=== PATIENT | male | born 1975 | race Caucasian/White ===

== ENCOUNTER 2019-10-16 12:09 | Inpatient (IN) | payer OTHER ==
--- NOTE | 2019-10-16 12:35 | BHS.RME ---
Substance Use & Tx History - Substance Use History Alcohol Substance amount: 1/5 vodka Frequency of use: More than 3 times per week Substance route: Oral Date of Last Use: 10/15/19 Heroin Substance amount: 1 bundle Frequency of use: Daily Substance route: Injection (ex: intravenous or skin popping) Date of Last Use: 10/16/19 Xanax Substance amount: 2mg 3 tabs Frequency of use: Daily Substance route: Oral Date of Last Use: 10/15/19 Nicotine Substance amount: 1/2 pack Frequency of use: Daily Substance route: Smoking Date of Last Use: 10/16/19 Physical/Psych/Mental Status - Behavior General Behavior: Increased activity (restlessness, agitation) Eye Contact: Normal - Thinking Thought Processes: Tight, Logical, Goal Directed - Physical Health Problems Is patient presently having any pain?: No Does patient presently have any injuries (include location): No Does patient currently have a fever: No Is patient : No COWS - Scale Resting Pulse: 0= [place] 80 or Below Sweatin=Flushed/Facial Moisture Restless Observation: 1= Difficult to Sit Still Pupil Size: 1= Pupils >than Normal Bone or Joint Aches: 2= Severe Diffuse Aches Runny Nose/ Eye Tearin= Runny Nose/Eyes GI Upset > 30mins: 2= Nausea/Diarrhea Tremor Observation: 4= Gross Tremor/Twitching Yawning Observation: 2= >3x During Session Anxiety or Irritability: 2=Irritable/Anxious Goose Flesh Skin: 3=Piloerection COWS Score: 21 CIWA Nausea/Vomitin Muscle Tremors: 3 Anxiety: 3 Agitation: 3 Paroxysmal Sweats: 3 Orientation: 0-Oriented Tacttile Disturbances: 0-None Auditory Disturbances: 0-None Visual Disturbances: 0-None Headache: 0-None Present CIWA-Ar Total Score: 15
--- NOTE | 2019-10-16 14:30 | HP ---
COWS - Scale Resting Pulse: 0= [place] 80 or Below Sweatin=Flushed/Facial Moisture Restless Observation: 1= Difficult to Sit Still Pupil Size: 1= Pupils >than Normal Bone or Joint Aches: 2= Severe Diffuse Aches Runny Nose/ Eye Tearin= Runny Nose/Eyes GI Upset > 30mins: 2= Nausea/Diarrhea Tremor Observation: 4= Gross Tremor/Twitching Yawning Observation: 2= >3x During Session Anxiety or Irritability: 2=Irritable/Anxious Goose Flesh Skin: 3=Piloerection COWS Score: 21 CIWA Score Nausea/Vomitin Muscle Tremors: 3 Anxiety: 3 Agitation: 3 Paroxysmal Sweats: 3 Orientation: 0-Oriented Tacttile Disturbances: 0-None Auditory Disturbances: 0-None Visual Disturbances: 0-None Headache: 0-None Present CIWA-Ar Total Score: 15 - Admission Criteria [facility]ASAS Guidelines: Admission for Medically Managed Detox: Requires at least one of the followin. CIWA greater than 12 2. Seizures within the past 24 hours 3. Delirium tremens within the past 24 hours 4. Hallucinations within the past 24 hours 5. Acute intervention needed for co occurring medical disorder 6. Acute intervention needed for co occurring psychiatric disorder 7. Severe withdrawal that cannot be handled at a lower level of care (continued vomiting, continued diarrhea, abnormal vital signs) requiring intravenous medication and/or fluids 8. Admitting History and Physical - Admission Chief Complaint: ": My life is out of control" History of Present Illness: 44 year old male with history of opioid dependence with withdrawals. sedative dependence, alcohol use disorder. He was in detox [facility] 90 days ago, completed and then relapsed immediately. Alcohol: 1/5 vodka 4x/wk, started in teen years, last used 10/15/19, blackout 1 year ago, endorses eye contact assembler daily Heroin: 1 bundle IV since age 30 and last used 10/16/19 at midnight. He has overdosed once 6 months ago, carries a narcan kit now. Benzo: Xanax 2 mg tabs - 3 tabs daily, started at age 36 and last used 10/15/19 Nicotine: 1/2 pack daily started smoking since 24 years old. PMH: Right Hip OA Psurg: None Psych: None Lives in the [place] alone. No legal problems. This patient was on suboxone with Dr. Humphrey who I spoke with on the phone who confirms that his suboxone was stolen and that he reported it to the police. He wishes to detox and not return to suboxone treatment. CIWA=15 COWS=21 Urine TOX: FEN, THC, AMP, CHRISTIN, MET Did use street methadone occasional marijuana He meets criteria as he is at high risk for relapse as he uses intravenously and has medical co-morbidity. History Source: Patient Limitations to Obtaining History: No Limitations - Past Medical History Musculoskeletal: Yes: Other (Osteoarthritis) - Past Surgical History Past Surgical History: Yes: None - Smoking History Smoking history: Current every day smoker Have you smoked in the past 12 months: Yes Aproximately how many cigarettes per day: 10 - Alcohol/Substance Use History of Substance Use: reports: Tranquilizers Date of Last Use: 10/16/19 - Social History Usual Living Arrangement: Yes: Alone Do you think of yourself as: Straight/Heterosexual ADL: Independent Occupation: unemployed History of Recent Travel: No Admission [facility] Exam Limitations: No Limitations - Ebola screening Have you traveled outside of the country in the last 21 days: No Have you had contact with anyone from an Ebola affected area: No Have you been sick,other than usual withdrawal symptoms: No Do you have a fever: No - Review of Systems Constitutional: Chills, Diaphoresis, Unintentional Wgt. Loss EENT: reports: No Symptoms Reported Respiratory: reports: No Symptoms reported Cardiac: reports: No Symptoms Reported GI: reports: No Symptoms Reported : reports: No Symptoms Reported Musculoskeletal: reports: No Symptoms Reported Integumentary: reports: No Symptoms Reported Neuro: reports: No Symptoms reported Endocrine: reports: No Symptoms Reported Hematology: reports: No Symptoms Reported Psychiatric: reports: Judgement Intact, Mood/Affect Appropiate, Orientated x3, Agitated, Anxious Other Systems: Reviewed and Negative Patient History - Patient Medical History Other Medical History: Osteoarthritis needs hip replacement - Patient Surgical History Past Surgical History: No - PPD History Previous Implant?: Yes Documented Results: Negative w/o proof Implanted On Prior [facility] Admission?: No PPD to be Administered?: Yes - Smoking Cessation Smoking history: Current every day smoker Have you smoked in the past 12 months: Yes Aproximately how many cigarettes per day: 10 Hx Chewing Tobacco Use: No Initiated information on smoking cessation: Yes 'Breaking Loose' booklet given: 10/16/19 - Substances abused Alcohol Substance route: Oral Frequency: 3-6 times per week Amount used: / vodka Age of first use: 17 Date of last use: 10/15/19 Heroin Substance route: Injection Frequency: Daily Amount used: 1 bundle Age of first use: 30 Date of last use: 10/16/19 Alprazolam (Xanax) Substance route: Oral Frequency: Daily Amount used: 2mg 3 tabs Age of first use: 36 Date of last use: 10/15/19 Admission Physical Exam [facility] Physical General Appearance: Yes: Mild Distress, Tremorous, Irritable, Sweating, Anxious HEENTM: Yes: EOMI, Hearing grossly Normal, Normal ENT Inspection, Normocephalic, Normal Voice, IVETTE, Pharynx Normal, Tm's normal Respiratory: Yes: Chest Non-Tender, Lungs Clear, Normal Breath Sounds, No Respi ratory Distress, No Accessory Muscle Use Neck: Yes: No masses,lesions,Nodules, Supple, Trachea in good position Breast: Yes: Within Normal Limits Cardiology: Yes: Regular Rhythm, Regular Rate, S1, S2 Abdominal: Yes: Normal Bowel Sounds, Non Tender, Flat, Soft Genitourinary: Yes: Within Normal Limits Back: Yes: Normal Inspection Musculoskeletal: Yes: full range of Motion, Gait Steady, Pelvis Stable Extremities: Yes: Normal Capillary Refill, Normal Inspection, Normal Range of Motion, Non-Tender Neurological: Yes: track supervisor II-XII NML intact, Fully Oriented, Alert, Motor Strength 5/5, Normal Mood/Affect, Normal Response Integumentary: Yes: Normal Color, Dry, Warm Lymphatic: Yes: Within Normal Limits Cleared for Admission [facility] - Detox or Rehab [facility] Level of Care: Medically Managed Detox Regimen/Protocol: Methadone/Valium Screened but not Admitted - Documentation of Visit Screened but not Admitted: No Breathalyzer - Breathalyzer Breathalyzer: 0 Inpatient Rehab Admission - Rehab Decision to Admit Inpatient rehab admission?: No
[2019-10-16] MEDS ORDERED: BISMUTH SUBSALICYLATE 262 MG/15 ML BTL PO PRN (14:39)
[2019-10-16] MEDS ORDERED: cloNIDine HCL 0.1 MG TABLET PO PRN (14:39)
[2019-10-16] MEDS ORDERED: IBUPROFEN 400 MG TABLET (FP) PO PRN (14:39)
[2019-10-16] MEDS ORDERED: MAGNESIUM CITRATE 300 ML BOTTLE PO PRN (14:39)
[2019-10-16] MEDS ORDERED: NICOTINE POLACRILEX 2 MG GUM BUC PRN (14:39)
[2019-10-16] MEDS ORDERED: ONDANSETRON *ODT* 4 MG TABLET SL ONE (14:39)
[2019-10-16] MEDS ORDERED: MAGNESIUM HYDROX 2400MG/30ML ORAL SUSPENSION 30 ML CUP PO PRN (14:39)
[2019-10-16] MEDS ORDERED: MAG HYDROX/AL HYDROX/SIMETH 30 ML UNIT-DOSE CUP PO PRN (14:39)
[2019-10-16] MEDS ORDERED: ACETAMINOPHEN 325 MG TABLET (FP) PO PRN ×2 (14:39)
[2019-10-16] MEDS ORDERED: diazePAM 5 MG TABLET PO PRN (14:39)
[2019-10-16] MEDS ORDERED: METHADONE HCL 10 MG TABLET (FOR DETOX USE ONLY) PO ONE (14:39)
[2019-10-16] MEDS ORDERED: MENTHOL/PHENOL 1 EACH UD MM PRN (14:39)
[2019-10-16] MEDS: diazePAM 5 MG TABLET PO SCH ×2 (15:43→22:16)
[2019-10-16] MEDS: PRENATAL VITAMINS W/ FOLIC ACID TABLET (FP) PO SCH (15:48)
[2019-10-16] MEDS: NICOTINE 7 MG/24 HOURS TOPICAL PATCH TD SCH (15:51)
[2019-10-16 15:58] VITALS: BMI 25.9
[2019-10-16] MEDS ORDERED: MASKS NR ONE (16:44)
[2019-10-16] MEDS: hydrOXYzine PAMOATE 25 MG CAPSULE (FP) PO SCH ×2 (17:33→22:19)
[2019-10-16] MEDS: THIAMINE HCL 100 MG TABLET (FP) PO SCH (22:16)
[2019-10-16] MEDS: MELATONIN 5 MG TABLETS PO SCH (22:17)
[2019-10-17] MEDS: diazePAM 5 MG TABLET PO SCH ×3 (05:54→21:47)
[2019-10-17] MEDS: hydrOXYzine PAMOATE 25 MG CAPSULE (FP) PO SCH ×2 (05:54→10:49)
[2019-10-17] MEDS ORDERED: METHADONE HCL 5 MG TABLET (FOR DETOX USE ONLY) ONE (09:22)
[2019-10-17] MEDS ORDERED: METHADONE HCL 10 MG TABLET (FOR DETOX USE ONLY) ONE (09:23)
[2019-10-17 10:00] LABS: HEMATOCRIT 42.6 % (35.4-49); HEMOGLOBIN 13.9 GM/dL (11.7-16.9); MCH 28.3 pg (25.7-33.7); MCHC 32.8 g/dl (32.0-35.9); MEAN CELL VOLUME 86.3 fl (80-96); MEAN PLT VOLUME 9.4 fl (7.5-11.1); PLATELET COUNT 175 K/MM3 (134-434); RBC 4.93 M/mm3 (4.00-5.60); RDW 15.2 % (11.9-15.9); WHITE BLOOD COUNT 4.7 K/mm3 (4.0-10.0)
[2019-10-17] MEDS ORDERED: METHADONE (DETOX) 20 MG, METHADONE (DETOX) 5 MG PO ONE (10:00)
[2019-10-17 10:17] LABS: ALBUMIN 3.3 g/dl (3.4-5.0); BILIRUBIN,TOTAL 0.6 mg/dL (0.2-1); BLOOD UREA NITROGEN 25.6 mg/dL (7-18); CALCIUM 8.8 mg/dL (8.5-10.1); CREATININE 0.9 mg/dL (0.55-1.3); TOT PROT 6.4 g/dl (6.4-8.2)
[2019-10-17] MEDS ORDERED: hydrOXYzine PAMOATE 25 MG CAPSULE (FP) PO PRN (10:40)
[2019-10-17] MEDS: NICOTINE 7 MG/24 HOURS TOPICAL PATCH TD SCH (10:46)
--- NOTE | 2019-10-17 10:47 | PN ---
[facility] CIWA - CIWA Score Nausea/Vomitin-No Nausea/No Vomiting Muscle Tremors: 3 Anxiety: 3 Agitation: 3 Paroxysmal Sweats: 2 Orientation: 0-Oriented Tacttile Disturbances: 0-None Auditory Disturbances: 0-None Visual Disturbances: 0-None Headache: 0-None Present CIWA-Ar Total Score: 11 S COWS - Scale Resting Pulse: 0= [place] 80 or Below Sweatin= Chills/Flushing Restless Observation: 1= Difficult to Sit Still Pupil Size: 0= Normal to Room Light Bone or Joint Aches: 1= Mild Discomfort Runny Nose/ Eye Tearin= Runny Nose/Eyes GI Upset > 30mins: 0= None Tremor Observation of Outstretched Hands: 1= Tremor [place], Not Seen Yawning Observation: 1= 1-2x During Session Anxiety or Irritability: 2=Irritable/Anxious Goose Flesh Skin: 0=Smooth Skin COWS Score: 9 [facility] Progress Note (SOAP) Subjective: sweats shakes body aches interrupted sleep chronic pain leg cramps Objective: 10/17/19 10:46 Vital Signs Temperature 97.8 F 10/17/19 09:12 Pulse Rate 55 L 10/17/19 09:12 Respiratory Rate 18 10/17/19 09:12 Blood Pressure 126/78 10/17/19 09:12 O2 Sat by Pulse Oximetry (%) 98 10/17/19 06:33 Laboratory Tests 10/17/19 10/17/19 07:10 07:10 WBC 4.7 RBC 4.93 Hgb 13.9 Hct 42.6 MCV 86.3 MCH 28.3 MCHC 32.8 RDW 15.2 Plt Count 175 MPV 9.4 Sodium 141 Potassium 4.0 Chloride 107 Carbon Dioxide 29 Anion Gap 5 L BUN 25.6 H Creatinine 0.9 Est GFR (CKD-EPI)AfAm 119.13 Est GFR (CKD-EPI)NonAf 102.79 Random Glucose 111 H Calcium 8.8 Total Bilirubin 0.6 AST 43 H ALT 71 H Alkaline Phosphatase 69 Total Protein 6.4 Albumin 3.3 L labs noted elevated BUN; encouraged fluids aaox3 ambulating no acute distress Assessment: 10/17/19 10:47 withdrawal sx Plan: continue detox increase fluids motrin 800mg tid prm roboxin prn
[2019-10-17] MEDS ORDERED: IBUPROFEN 400 MG TABLET (FP) PO PRN (10:48)
[2019-10-17] MEDS: PRENATAL VITAMINS W/ FOLIC ACID TABLET (FP) PO SCH (10:54)
--- NOTE | 2019-10-17 13:18 | EKG ---
Test Reason : Blood Pressure : / mmHG Vent. Rate : 059 BPM Atrial Rate : 059 BPM P-R Int : 154 ms QRS Dur : 100 ms QT Int : 432 ms P-R-T Axes : 045 008 031 degrees QTc Int : 427 ms SINUS BRADYCARDIA WITH SINUS ARRHYTHMIA NONSPECIFIC INTRAVENTRICULAR CONDUCTION DEFECT NO PREVIOUS ECGS AVAILABLE Confirmed by JAVIER BURKETT MD ([id number]) on 10/17/2019 1:17:20 PM Referred By: Confirmed By:JAVIER BURKETT MD
[2019-10-17] MEDS: METHOCARBAMOL 500 MG TABLET PO PRN (14:29)
[2019-10-17] MEDS: THIAMINE HCL 100 MG TABLET (FP) PO SCH (21:47)
[2019-10-17] MEDS: MELATONIN 5 MG TABLETS PO SCH (21:55)
[2019-10-18] MEDS: diazePAM 5 MG TABLET PO SCH ×2 (06:51→17:46)
[2019-10-18] MEDS ORDERED: METHADONE HCL 10 MG TABLET (FOR DETOX USE ONLY) PO ONE (10:00)
[2019-10-18] MEDS: PRENATAL VITAMINS W/ FOLIC ACID TABLET (FP) PO SCH (10:38)
[2019-10-18] MEDS: NICOTINE 7 MG/24 HOURS TOPICAL PATCH TD SCH (10:39)
[2019-10-18] MEDS: METHOCARBAMOL 500 MG TABLET PO PRN (13:06)
--- NOTE | 2019-10-18 18:08 | PN ---
S CIWA - CIWA Score Nausea/Vomitin-No Nausea/No Vomiting Muscle Tremors: None Anxiety: 1-Mildly Anxious Agitation: 1-Slight > Activity Paroxysmal Sweats: 2 Orientation: 0-Oriented Tacttile Disturbances: 2-Mild Itch/Numbness/Burn Auditory Disturbances: 0-None Visual Disturbances: 2-Mild Sensitivity Headache: 0-None Present CIWA-Ar Total Score: 8 [facility] COWS - Scale Resting Pulse: 0= [place] 80 or Below Sweatin= Chills/Flushing Restless Observation: 1= Difficult to Sit Still Pupil Size: 0= Normal to Room Light Bone or Joint Aches: 4=Acute Joint/Muscle Pain Runny Nose/ Eye Tearin= None GI Upset > 30mins: 0= None Tremor Observation of Outstretched Hands: 0= None Yawning Observation: 1= 1-2x During Session Anxiety or Irritability: 2=Irritable/Anxious Goose Flesh Skin: 0=Smooth Skin COWS Score: 9 S Progress Note (SOAP) Subjective: Sweating, Body Aches, Interrupted Sleep. Objective: Patient A & O X 3, Observed Ambulating on Detox Unit Unassisted. In No Acute Distress. 10/18/19 18:07 Vital Signs Temperature 98.4 F 10/18/19 17:15 Pulse Rate 54 L 10/18/19 17:15 Respiratory Rate 18 10/18/19 17:15 Blood Pressure 113/73 10/18/19 17:15 O2 Sat by Pulse Oximetry (%) 99 10/18/19 12:48 Laboratory Tests 10/17/19 10/17/19 10/17/19 07:10 07:10 07:10 WBC 4.7 RBC 4.93 Hgb 13.9 Hct 42.6 MCV 86.3 MCH 28.3 MCHC 32.8 RDW 15.2 Plt Count 175 MPV 9.4 Sodium 141 Potassium 4.0 Chloride 107 Carbon Dioxide 29 Anion Gap 5 L BUN 25.6 H Creatinine 0.9 Est GFR (CKD-EPI)AfAm 119.13 Est GFR (CKD-EPI)NonAf 102.79 Random Glucose 111 H Calcium 8.8 Total Bilirubin 0.6 AST 43 H ALT 71 H Alkaline Phosphatase 69 Total Protein 6.4 Albumin 3.3 L Syphilis Serology Non-reactive Lab Results Noted. Assessment: 10/18/19 18:07 WITHDRAWAL SYMPTOMS. Plan: Continue Detox.
[2019-10-18] MEDS: LIDOCAINE 5% TOPICAL PATCH TP SCH (18:28)
[2019-10-18] MEDS: LIDOCAINE PATCH REMOVAL MC SCH (23:00)
[2019-10-18] MEDS: THIAMINE HCL 100 MG TABLET (FP) PO SCH (23:00)
[2019-10-18] MEDS: MELATONIN 5 MG TABLETS PO SCH (23:00)
[2019-10-19] MEDS ORDERED: diazePAM 5 MG TABLET PO ONE (06:00)
[2019-10-19] MEDS ORDERED: METHADONE HCL 5 MG TABLET (FOR DETOX USE ONLY) ONE (09:35)
[2019-10-19] MEDS ORDERED: METHADONE HCL 10 MG TABLET (FOR DETOX USE ONLY) ONE (09:35)
[2019-10-19] MEDS ORDERED: METHADONE (DETOX) 10 MG, METHADONE (DETOX) 5 MG PO ONE (10:00)
[2019-10-19] MEDS: PRENATAL VITAMINS W/ FOLIC ACID TABLET (FP) PO SCH (10:55)
[2019-10-19] MEDS: LIDOCAINE 5% TOPICAL PATCH TP SCH (10:56)
[2019-10-19] MEDS: METHOCARBAMOL 500 MG TABLET PO PRN (10:57)
[2019-10-19] MEDS: NICOTINE 7 MG/24 HOURS TOPICAL PATCH TD SCH (10:57)
[2019-10-19] MEDS ORDERED: cloNIDine HCL 0.1 MG TABLET PO PRN (15:37)
--- NOTE | 2019-10-19 15:39 | PN ---
S CIWA - CIWA Score Nausea/Vomitin-No Nausea/No Vomiting Muscle Tremors: 2 Anxiety: 2 Agitation: 1-Slight > Activity Paroxysmal Sweats: 2 Orientation: 0-Oriented Tacttile Disturbances: 0-None Auditory Disturbances: 0-None Visual Disturbances: 0-None Headache: 0-None Present CIWA-Ar Total Score: 7 [facility] COWS - Scale Resting Pulse: 0= [place] 80 or Below Sweatin= Chills/Flushing Restless Observation: 0= Sits Still Pupil Size: 0= Normal to Room Light Bone or Joint Aches: 1= Mild Discomfort Runny Nose/ Eye Tearin= Runny Nose/Eyes GI Upset > 30mins: 1= Stomach Cramp Tremor Observation of Outstretched Hands: 2= Slight Tremor Visible Yawning Observation: 0= None Anxiety or Irritability: 1=Feels Anxious/Irritable Goose Flesh Skin: 0=Smooth Skin COWS Score: 8 [facility] Progress Note (SOAP) Subjective: Stomachache, diarrhea. Uses crutches stating he needs right hip replacement. Patient is wearing face mask. Objective: 10/19/19 15:35 Last Vital Signs Temp Pulse Resp BP Pulse Ox 97.3 F L 56 L 19 143/78 100 10/19/19 12:56 10/19/19 12:56 10/19/19 12:56 10/19/19 12:56 10/19/19 12:56 Elevated b/p noted Laboratory Tests 10/16/19 10/17/19 10/17/19 Unknown 07:10 07:10 WBC 4.7 RBC 4.93 Hgb 13.9 Hct 42.6 MCV 86.3 MCH 28.3 MCHC 32.8 RDW 15.2 Plt Count 175 MPV 9.4 Sodium 141 Potassium 4.0 Chloride 107 Carbon Dioxide 29 Anion Gap 5 L BUN 25.6 H Creatinine 0.9 Est GFR (CKD-EPI)AfAm 119.13 Est GFR (CKD-EPI)NonAf 102.79 Random Glucose 111 H Calcium 8.8 Total Bilirubin 0.6 AST 43 H ALT 71 H Alkaline Phosphatase 69 Total Protein 6.4 Albumin 3.3 L Syphilis Serology COVID-19 (FELA) Not detected 10/17/19 07:10 WBC RBC Hgb Hct MCV MCH MCHC RDW Plt Count MPV Sodium Potassium Chloride Carbon Dioxide Anion Gap BUN Creatinine Est GFR (CKD-EPI)AfAm Est GFR (CKD-EPI)NonAf Random Glucose Calcium Total Bilirubin AST ALT Alkaline Phosphatase Total Protein Albumin Syphilis Serology Non-reactive COVID-19 (FELA) Labs reviewed: mild transaminitis and azotemia Assessment: 10/19/19 15:39 Withdrawal sxs Noted with elevated b/p, transaminitis and azotemia Plan: Continue detox Elevated b/p: could be r/t withdrawal, monitor b/p, start clonidine 0.1mg PO q8hr (hold for b/p <110/60) Transaminitis: most likely due to alcoholism, repeat AST/ALT Azotemia: encouraged PO water hydration
[2019-10-19] MEDS: THIAMINE HCL 100 MG TABLET (FP) PO SCH (22:00)
[2019-10-19] MEDS: MELATONIN 5 MG TABLETS PO SCH (22:00)
[2019-10-19] MEDS: LIDOCAINE PATCH REMOVAL MC SCH (22:04)
--- NOTE | 2019-10-20 09:54 | PN ---
[facility] CIWA - CIWA Score Nausea/Vomitin-No Nausea/No Vomiting Muscle Tremors: 2 Anxiety: 1-Mildly Anxious Agitation: 1-Slight > Activity Paroxysmal Sweats: No Perspiration Orientation: 0-Oriented Tacttile Disturbances: 0-None Auditory Disturbances: 0-None Visual Disturbances: 0-None Headache: 0-None Present CIWA-Ar Total Score: 4 S COWS - Scale Resting Pulse: 0= [place] 80 or Below Sweatin= No chills or Flushing Restless Observation: 1= Difficult to Sit Still Pupil Size: 0= Normal to Room Light Bone or Joint Aches: 1= Mild Discomfort Runny Nose/ Eye Tearin= None GI Upset > 30mins: 0= None Tremor Observation of Outstretched Hands: 0= None Yawning Observation: 0= None Anxiety or Irritability: 1=Feels Anxious/Irritable Goose Flesh Skin: 0=Smooth Skin COWS Score: 3 S Progress Note (SOAP) Subjective: feeling better little anxiety Objective: 10/20/19 09:53 Vital Signs Temperature 98.5 F 10/20/19 08:45 Pulse Rate 56 L 10/20/19 08:45 Respiratory Rate 17 10/20/19 08:45 Blood Pressure 125/69 10/20/19 08:45 O2 Sat by Pulse Oximetry (%) 96 10/20/19 06:05 aaox3 ambulating with crutches safely no acute distress Assessment: 10/20/19 09:53 mild withdrawals Plan: complete detox d/c in am
[2019-10-20] MEDS ORDERED: METHADONE HCL 10 MG TABLET (FOR DETOX USE ONLY) PO ONE (10:00)
[2019-10-20] MEDS: PRENATAL VITAMINS W/ FOLIC ACID TABLET (FP) PO SCH (10:52)
[2019-10-20] MEDS: LIDOCAINE 5% TOPICAL PATCH TP SCH (10:52)
[2019-10-20] MEDS: NICOTINE 7 MG/24 HOURS TOPICAL PATCH TD SCH (10:53)
[2019-10-20] MEDS: METHOCARBAMOL 500 MG TABLET PO PRN (10:55)
--- NOTE | 2019-10-20 13:30 | PN ---
[facility] Progress Note (SOAP) Subjective: I am ready for rehab today Objective: 10/20/19 13:29 Vital Signs Temperature 98.5 F 10/20/19 08:45 Pulse Rate 56 L 10/20/19 08:45 Respiratory Rate 17 10/20/19 08:45 Blood Pressure 125/69 10/20/19 08:45 O2 Sat by Pulse Oximetry (%) 96 10/20/19 06:05 aaox3 ambulating no acute distress Assessment: 10/20/19 13:29 no s/s of withdrawals noted Plan: d/c today to rehab available for today
--- NOTE | 2019-10-20 13:32 | DS ---
[facility] Detox Discharge Summary Admission Date: 10/16/19 Discharge Date: 10/20/19 - History Present History: Opioid Dependence - Physical Exam Results Vital Signs: Vital Signs Temperature 98.5 F 10/20/19 08:45 Pulse Rate 56 L 10/20/19 08:45 Respiratory Rate 17 10/20/19 08:45 Blood Pressure 125/69 10/20/19 08:45 O2 Sat by Pulse Oximetry (%) 96 10/20/19 06:05 Laboratory Tests 10/16/19 10/17/19 10/17/19 Unknown 07:10 07:10 WBC 4.7 RBC 4.93 Hgb 13.9 Hct 42.6 MCV 86.3 MCH 28.3 MCHC 32.8 RDW 15.2 Plt Count 175 MPV 9.4 Sodium 141 Potassium 4.0 Chloride 107 Carbon Dioxide 29 Anion Gap 5 L BUN 25.6 H Creatinine 0.9 Est GFR (CKD-EPI)AfAm 119.13 Est GFR (CKD-EPI)NonAf 102.79 Random Glucose 111 H Calcium 8.8 Total Bilirubin 0.6 AST 43 H ALT 71 H Alkaline Phosphatase 69 Total Protein 6.4 Albumin 3.3 L Syphilis Serology COVID-19 (FELA) Not detected 10/17/19 07:10 WBC RBC Hgb Hct MCV MCH MCHC RDW Plt Count MPV Sodium Potassium Chloride Carbon Dioxide Anion Gap BUN Creatinine Est GFR (CKD-EPI)AfAm Est GFR (CKD-EPI)NonAf Random Glucose Calcium Total Bilirubin AST ALT Alkaline Phosphatase Total Protein Albumin Syphilis Serology Non-reactive COVID-19 (FELA) Pertinent Admission Physical Exam Findings: Vital Signs Temperature 98.5 F 10/20/19 08:45 Pulse Rate 56 L 10/20/19 08:45 Respiratory Rate 17 10/20/19 08:45 Blood Pressure 125/69 10/20/19 08:45 O2 Sat by Pulse Oximetry (%) 96 10/20/19 06:05 Laboratory Tests 10/16/19 10/17/19 10/17/19 Unknown 07:10 07:10 WBC 4.7 RBC 4.93 Hgb 13.9 Hct 42.6 MCV 86.3 MCH 28.3 MCHC 32.8 RDW 15.2 Plt Count 175 MPV 9.4 Sodium 141 Potassium 4.0 Chloride 107 Carbon Dioxide 29 Anion Gap 5 L BUN 25.6 H Creatinine 0.9 Est GFR (CKD-EPI)AfAm 119.13 Est GFR (CKD-EPI)NonAf 102.79 Random Glucose 111 H Calcium 8.8 Total Bilirubin 0.6 AST 43 H ALT 71 H Alkaline Phosphatase 69 Total Protein 6.4 Albumin 3.3 L Syphilis Serology COVID-19 (FELA) Not detected 10/17/19 07:10 WBC RBC Hgb Hct MCV MCH MCHC RDW Plt Count MPV Sodium Potassium Chloride Carbon Dioxide Anion Gap BUN Creatinine Est GFR (CKD-EPI)AfAm Est GFR (CKD-EPI)NonAf Random Glucose Calcium Total Bilirubin AST ALT Alkaline Phosphatase Total Protein Albumin Syphilis Serology Non-reactive COVID-19 (FELA) aaox3 ambulating with crutches safely no acute distress lungs assessed CTA - Treatment Hospital Course: Detox Protocol Followed, Detoxed Safely, Responded well, Discharged Condition Good, Rehab Referral Accepted Patient has Accepted a Rehab Referral to: referred in [facility] inpatient rehab - Diagnosis (1) Osteoarthritis of right hip Current Visit: Yes Status: Chronic Qualifiers: Osteoarthritis type: other secondary Qualified Code(s): M16.7 - Other unilateral secondary osteoarthritis of hip (2) Sedative, hypnotic or anxiolytic dependence with withdrawal, uncomplicated Current Visit: Yes Status: Chronic (3) Nicotine dependence Current Visit: Yes Status: Chronic Qualifiers: Nicotine product type: cigarettes Substance use status: uncomplicated Qualified Code(s): F17.210 - Nicotine dependence, cigarettes, uncomplicated (4) Opioid dependence with withdrawal Current Visit: Yes Status: Chronic (5) Alcohol dependence with withdrawal, uncomplicated Current Visit: Yes Status: Chronic - AMA Did Patient Leave Against Medical Advice: No
[2019-10-20 13:33] VITALS: BP 111/69; PULSE 57; TEMP 97.6
[2019-10-21] MEDS ORDERED: METHADONE HCL 5 MG TABLET (FOR DETOX USE ONLY) PO ONE (06:00)
== END 2019-10-20 15:35 | disposition other institution (70) | DRG 773 ==
LOC: YASAS 12:09 → Y6N 14:45
PROVIDERS: ADMIT Allergy & Immunology; ATTEND Allergy & Immunology
PROC: HZ2ZZZZ Detoxification Services for Substance Abuse Treatment (ICD-10-PCS; principal; 2019-10-16)
DX: F11.23 Opioid dependence with withdrawal (principal); F10.230 Alcohol dependence with withdrawal, uncomplicated; F13.230 Sedative, hypnotic or anxiolytic dependence with withdrawal, uncomplicated; F17.210 Nicotine dependence, cigarettes, uncomplicated; M16.7 Other unilateral secondary osteoarthritis of hip; R03.0 Elevated blood-pressure reading, without diagnosis of hypertension; R79.89 Other specified abnormal findings of blood chemistry; R74.0 Nonspecific elevation of levels of transaminase and lactic acid dehydrogenase [LDH]
CPT/HCPCS: 36415; 80053; 85027; 86780; 93005; 93010; U0003

== ENCOUNTER 2019-10-20 14:39 | Inpatient (IN) | payer OTHER ==
[2019-10-20] MEDS ORDERED: MAGNESIUM HYDROX 2400MG/30ML ORAL SUSPENSION 30 ML CUP PO PRN (14:53)
[2019-10-20] MEDS ORDERED: ACETAMINOPHEN 325 MG TABLET (FP) PO PRN (14:53)
[2019-10-20] MEDS ORDERED: P-EPHED 60MG/TRIPROLIDI 2.5MG TABLET PO PRN (14:53)
[2019-10-20] MEDS ORDERED: LOPERAMIDE HCL 2 MG CAPSULE PO PRN (14:53)
[2019-10-20] MEDS ORDERED: MENTHOL/PHENOL 1 EACH UD MM PRN (14:53)
[2019-10-20] MEDS ORDERED: MAG HYDROX/AL HYDROX/SIMETH 30 ML UNIT-DOSE CUP PO PRN (14:53)
[2019-10-20] MEDS ORDERED: MAGNESIUM CITRATE 300 ML BOTTLE PO PRN (14:53)
[2019-10-20] MEDS ORDERED: guaiFENesin 200 MG/10 ML 10 ML UNIT-DOSE CUPS PO PRN (14:53)
[2019-10-20] MEDS ORDERED: NICOTINE POLACRILEX 2 MG GUM BUC PRN (14:53)
--- NOTE | 2019-10-20 14:53 | HP ---
[facility] Rehab Assess/Revision - Admission History Admitted to Rehab from: [facility] Date of Admission to Rehab: 10/19/29 - Findings Detox History & Physical reviewed: Yes Concur with findings: Yes Comments/Additional Findings: for rehab as protocol Inpatient Rehab Admission - Rehab Decision to Admit Inpatient rehab admission?: Yes - Initial Determination Are CD services needed?: Yes Free of communicable disease: Yes Not in need of hospitalization: Yes - Rehab Admission Criteria Previous failed treatment: Yes Poor recovery environment: Yes Comorbidities: Yes Lacks judgement: No Patient is meeting Inpatient Rehab admission criteria:: Yes
[2019-10-20] MEDS: THIAMINE HCL 100 MG TABLET (FP) PO SCH (21:33)
[2019-10-20] MEDS: MELATONIN 5 MG TABLETS PO SCH (21:33)
[2019-10-20] MEDS: hydrOXYzine PAMOATE 25 MG CAPSULE (FP) PO SCH (21:34)
[2019-10-20] MEDS: cloNIDine HCL 0.1 MG TABLET PO SCH (21:35)
[2019-10-21] MEDS: hydrOXYzine PAMOATE 25 MG CAPSULE (FP) PO SCH ×2 (06:55→09:17)
[2019-10-21] MEDS: PRENATAL VITAMINS W/ FOLIC ACID TABLET (FP) PO SCH (09:17)
[2019-10-21] MEDS: cloNIDine HCL 0.1 MG TABLET PO SCH ×2 (09:17→21:28)
[2019-10-21] MEDS: METHOCARBAMOL 500 MG TABLET PO PRN ×3 (09:19→21:28)
[2019-10-21] MEDS ORDERED: NICOTINE 7 MG/24 HOURS TOPICAL PATCH TD SCH (10:00)
[2019-10-21] MEDS: NICOTINE 21 MG/24 HOURS TOPICAL PATCH TD SCH (11:30)
[2019-10-21] MEDS: hydrOXYzine PAMOATE 25 MG CAPSULE (FP) PO PRN (17:32)
[2019-10-21] MEDS: THIAMINE HCL 100 MG TABLET (FP) PO SCH (21:27)
[2019-10-21] MEDS: MELATONIN 5 MG TABLETS PO SCH (21:27)
[2019-10-22] MEDS: cloNIDine HCL 0.1 MG TABLET PO SCH ×2 (09:08→21:06)
[2019-10-22] MEDS: NICOTINE 21 MG/24 HOURS TOPICAL PATCH TD SCH (09:08)
[2019-10-22] MEDS: PRENATAL VITAMINS W/ FOLIC ACID TABLET (FP) PO SCH (09:08)
--- NOTE | 2019-10-22 14:27 | PN ---
[facility]HS COWS - Scale Resting Pulse: 0= ME 80 or Below Sweatin= Chills/Flushing Restless Observation: 0= Sits Still Pupil Size: 1= Pupils >than Normal Bone or Joint Aches: 2= Severe Diffuse Aches Runny Nose/ Eye Tearin= Runny Nose/Eyes GI Upset > 30mins: 1= Stomach Cramp Tremor Observation of Outstretched Hands: 1= Tremor [place], Not Seen Yawning Observation: 0= None Anxiety or Irritability: 1=Feels Anxious/Irritable Goose Flesh Skin: 0=Smooth Skin COWS Score: 9 BHS Progress Note (SOAP) Subjective: Patient requesting to re-start suboxone. Upon admission, he thought that he would stop using the suboxone, but after detox, he began to experience withdrawal symptoms. Yesterday he was unusually irritable; and today he is experience full body aches, abd discomfort, and cravings. 44 year old male with history of opioid dependence with withdrawals. sedative dependence, alcohol use disorder. He was in detox [facility] 90 days ago, completed and then relapsed immediately. Alcohol: 1/5 vodka 4x/wk, started in teen years, last used 10/15/19, blackout 1 year ago, endorses eye data examination clerk daily Heroin: 1 bundle IV since age 30 and last used 10/16/19 at midnight. He has overdosed once 6 months ago, carries a narcan kit now. Benzo: Xanax 2 mg tabs - 3 tabs daily, started at age 36 and last used 10/15/19 Nicotine: 1/2 pack daily started smoking since 24 years old. PMH: Right Hip OA Psurg: None Psych: None Lives in the [place] alone. No legal problems. This patient was on suboxone with Dr. Humphrey. Dr. Starks, emergency medicine medical director spoke with Dr. Humphrey on the phone who confirms that his suboxone was stolen and that he reported it to the police. Patient Name: Raymond DomingoBirth Date: 1975 Address: [address] [place] [id number]: Male Rx Written Rx Dispensed Drug Quantity Days Supply Prescriber Name Payment Method Dispenser 09/30/2019 09/30/2019 suboxone 8 mg-2 mg sl film 90 30 Bola Humphrey MD Medicaid [facility] 09/02/2019 09/02/2019 suboxone 8 mg-2 mg sl film 90 30 Bola Humphrey MD Medicaid [facility] Patient Name: Raymond DomingoBirth Date: 1975 Address: [place], [place] [address]Zsk: Male Rx Written Rx Dispensed Drug Quantity Days Supply Prescriber Name Payment Method Dispenser 09/12/2019 09/15/2019 chlordiazepoxide 25 mg capsule 11 2 Sanchez Arizmendi (MATTIE) Medicaid [facility] 08/15/2019 08/15/2019 lorazepam 2 mg tablet 8 2 Sanchez Phipps (MATTIE) Medicaid [facility] 06/10/2019 06/11/2019 chlordiazepoxide 25 mg capsule 8 2 Candi Morejonand Medicaid [facility] 05/07/2019 05/08/2019 chlordiazepoxide 25 mg capsule 8 2 Daniel Morejon Medicaid [facility] 12/31/2018 12/31/2018 testosterone cyp 200 mg/ml 4ml 28 Tyrone Abreu MD Medicaid [facility] 10/31/2018 11/05/2018 testosterone cyp 200 mg/ml 4ml 28 Tyrone Abreu MD Medicaid [facility] Patient Name: Raymond DomingoBirth Date: 1975 Address: [address] [place] [id number]: Male Rx Written Rx Dispensed Drug Quantity Days Supply Prescriber Name Payment Method Dispenser 09/03/2019 09/03/2019 lorazepam 1 mg tablet 27 7 Nicole Martinez NP [facility] Patient Name: Raymond DomingoBirth Date: 1975 Address: [address] [place], [place] [address]Mig: Male Rx Written Rx Dispensed Drug Quantity Days Supply Prescriber Name Payment Method Dispenser 03/03/2019 03/04/2019 suboxone 12 mg-3 mg sl film 14 14 Julio Garcia MD Medicaid [id number] Objective: P/E; General: appears anxious HEENTM: normocephalic, Pupils > 1cm, reactive Neck: supple Resp:no use of accessory muscles MSK: ambulates with crutches Neuro: Cn 2-12 intact. 10/22/19 14:42 Assessment: Wiethdrawal from opiates 10/22/19 14:43 Plan: Patient's usual dose is 8 mg TID. Will give one dose of 8 today, and increase tomorrow.
[2019-10-22] MEDS ORDERED: BUPRENORPHINE/NALOXONE 8 MG/2 MG FILM PACKET SL ONE (14:45)
[2019-10-22] MEDS: THIAMINE HCL 100 MG TABLET (FP) PO SCH (21:05)
[2019-10-22] MEDS: MELATONIN 5 MG TABLETS PO SCH (21:05)
[2019-10-22] MEDS: METHOCARBAMOL 500 MG TABLET PO PRN (21:06)
[2019-10-23] MEDS: cloNIDine HCL 0.1 MG TABLET PO SCH ×2 (10:03→21:10)
[2019-10-23] MEDS: BUPRENORPHINE/NALOXONE 8 MG/2 MG FILM PACKET SL SCH (10:03)
[2019-10-23] MEDS: NICOTINE 21 MG/24 HOURS TOPICAL PATCH TD SCH (10:03)
[2019-10-23] MEDS: PRENATAL VITAMINS W/ FOLIC ACID TABLET (FP) PO SCH (10:04)
[2019-10-23] MEDS: hydrOXYzine PAMOATE 25 MG CAPSULE (FP) PO PRN ×2 (15:26→21:10)
[2019-10-23] MEDS: IBUPROFEN 400 MG TABLET (FP) PO PRN (15:26)
[2019-10-23] MEDS: METHOCARBAMOL 500 MG TABLET PO PRN (15:26)
--- NOTE | 2019-10-23 15:53 | PN ---
[facility] Progress Note Note: Patient states he needs pain medications Declofenac and gabapentin that he takes at home. However, these medications are not in his at home list. He states that he has them in his personal belongings. Patient needs to be escorted downstairs to retrieve medications and have them verified by pharmacy before they can be dispensed.
[2019-10-23] MEDS: THIAMINE HCL 100 MG TABLET (FP) PO SCH (21:09)
[2019-10-23] MEDS: MELATONIN 5 MG TABLETS PO SCH (21:12)
[2019-10-24] MEDS: cloNIDine HCL 0.1 MG TABLET PO SCH ×3 (09:16→21:11)
[2019-10-24] MEDS: PRENATAL VITAMINS W/ FOLIC ACID TABLET (FP) PO SCH (09:17)
[2019-10-24] MEDS: BUPRENORPHINE/NALOXONE 8 MG/2 MG FILM PACKET SL SCH ×3 (09:17→21:56)
[2019-10-24] MEDS: NICOTINE 21 MG/24 HOURS TOPICAL PATCH TD SCH (09:17)
--- NOTE | 2019-10-24 09:47 | PN ---
[facility] Progress Note Note: Vital Signs Temperature 97.5 F L 10/24/19 06:25 Pulse Rate 68 10/24/19 09:05 Respiratory Rate 18 10/24/19 09:05 Blood Pressure 127/68 10/24/19 09:05 O2 Sat by Pulse Oximetry (%) 98 10/24/19 06:25 Patient is a 44 yo male with long standing history of opioid dependence on MAT BUP at this time and currently receiving dose of 8mg QD. Patient is stable, in no apparent distress, ambulatory, but anxious. Reports taking higher dose at home and requesting increase in those. HEALTH INFORMATION CODER reviewed and was on routine dose of 8mg TID. Will increase to 8 mg SL BID and continue to monitor. Patient to follow up with aftercare upon completing rehab treatment, continue to monitor and assess for dose adjustment as needed. Patient Name: Raymond DomingoBirth Date: 1975 Address: [address] [place] [id number]: Male Rx Written Rx Dispensed Drug Quantity Days Supply Prescriber Name Payment Method Dispenser 09/30/2019 09/30/2019 suboxone 8 mg-2 mg sl film 90 30 Bola Humphrey MD Medicaid [address] [facility] 09/02/2019 09/02/2019 suboxone 8 mg-2 mg sl film 90 30 Bola Humphrey MD Medicaid [address] [facility] Patient Name: Raymond DomingoBirth Date: 1975 Address: [place], [place] [address]Wam: Male Rx Written Rx Dispensed Drug Quantity Days Supply Prescriber Name Payment Method Dispenser 09/12/2019 09/15/2019 chlordiazepoxide 25 mg capsule 11 2 Sanchez Arizmendi (MATTIE) Medicaid [facility] 08/15/2019 08/15/2019 lorazepam 2 mg tablet 8 2 Sanchez Phipps (MATTIE) Medicaid [facility], [facility]
[2019-10-24] MEDS ORDERED: BUPRENORPHINE/NALOXONE 8 MG/2 MG FILM PACKET SL SCH (10:00)
[2019-10-24] MEDS: THIAMINE HCL 100 MG TABLET (FP) PO SCH (21:12)
[2019-10-24] MEDS: MELATONIN 5 MG TABLETS PO SCH (21:12)
[2019-10-25] MEDS: NICOTINE 21 MG/24 HOURS TOPICAL PATCH TD SCH (09:30)
[2019-10-25] MEDS: BUPRENORPHINE/NALOXONE 8 MG/2 MG FILM PACKET SL SCH ×2 (09:30→21:32)
[2019-10-25] MEDS: PRENATAL VITAMINS W/ FOLIC ACID TABLET (FP) PO SCH (09:30)
[2019-10-25] MEDS: IBUPROFEN 400 MG TABLET (FP) PO PRN (09:58)
[2019-10-25] MEDS: THIAMINE HCL 100 MG TABLET (FP) PO SCH (21:32)
[2019-10-25] MEDS: hydrOXYzine PAMOATE 25 MG CAPSULE (FP) PO PRN (21:32)
[2019-10-25] MEDS: MELATONIN 5 MG TABLETS PO SCH (21:33)
[2019-10-26] MEDS: IBUPROFEN 400 MG TABLET (FP) PO PRN (10:21)
[2019-10-26] MEDS: NICOTINE 21 MG/24 HOURS TOPICAL PATCH TD SCH (10:21)
[2019-10-26] MEDS: PRENATAL VITAMINS W/ FOLIC ACID TABLET (FP) PO SCH (10:21)
[2019-10-26] MEDS: BUPRENORPHINE/NALOXONE 8 MG/2 MG FILM PACKET SL SCH ×2 (10:21→21:05)
[2019-10-26] MEDS: THIAMINE HCL 100 MG TABLET (FP) PO SCH (21:05)
[2019-10-26] MEDS: MELATONIN 5 MG TABLETS PO SCH (21:05)
[2019-10-27] MEDS: IBUPROFEN 400 MG TABLET (FP) PO PRN (06:59)
[2019-10-27] MEDS: BUPRENORPHINE/NALOXONE 8 MG/2 MG FILM PACKET SL SCH ×2 (09:59→21:04)
[2019-10-27] MEDS: NICOTINE 21 MG/24 HOURS TOPICAL PATCH TD SCH (09:59)
[2019-10-27] MEDS: PRENATAL VITAMINS W/ FOLIC ACID TABLET (FP) PO SCH (09:59)
[2019-10-27] MEDS: IBUPROFEN 600 MG TABLET (FP) PO PRN (13:54)
--- NOTE | 2019-10-27 15:03 | PN ---
[facility] Progress Note Note: Patient for discharge tomorrow morning. On suboxone MAT but refused prescription to be sent to pharmacy due to insurance issue. Patient to follow up with [facility] 10/28/2019 to continue treatment. Vital Signs Temperature 97.8 F 10/27/19 07:53 Pulse Rate 59 L 10/27/19 07:53 Respiratory Rate 18 10/27/19 07:53 Blood Pressure 121/75 10/27/19 07:53 O2 Sat by Pulse Oximetry (%) 98 10/27/19 11:06
[2019-10-27] MEDS: THIAMINE HCL 100 MG TABLET (FP) PO SCH (21:04)
[2019-10-27] MEDS: MELATONIN 5 MG TABLETS PO SCH (21:05)
[2019-10-28] MEDS: IBUPROFEN 600 MG TABLET (FP) PO PRN (06:27)
[2019-10-28 07:04] VITALS: BP 123/74; PULSE 62; TEMP 97.7
--- NOTE | 2019-10-28 08:26 | DS ---
[facility] Rehab Discharge Summary - [facility] Rehab Discharge Summary Admission Date: 10/20/19 Discharge Date: 10/28/19 - History Present History: Alcohol dependence, Opioid dependence Pertinent Past History: 44 year old male with history of opioid dependence with withdrawals. sedative dependence, alcohol use disorder. He was in detox [facility] 90 days ago, completed and then relapsed immediately. Alcohol: 1/5 vodka 4x/wk, started in teen years, last used 10/15/19, blackout 1 year ago, endorses eye cruise guide daily Heroin: 1 bundle IV since age 30 and last used 10/16/19 at midnight. He has overdosed once 6 months ago, carries a narcan kit now. Benzo: Xanax 2 mg tabs - 3 tabs daily, started at age 36 and last used 10/15/19 Nicotine: 1/2 pack daily started smoking since 24 years old. PMH: Right Hip OA Psurg: None Psych: None Lives in the [place] alone. No legal problems. This patient was on suboxone with Dr. Humphrey confirms that his suboxone was stolen and that he reported it to the police. He wishes to detox and not return to suboxone treatment. He was treated with suboxone while in rehab, but refused a prescription for it at discharge. - Discharge Physical Exam Vital Signs: Vital Signs Temperature 97.7 F 10/28/19 07:02 Pulse Rate 62 10/28/19 07:02 Respiratory Rate 18 10/28/19 07:02 Blood Pressure 123/74 10/28/19 07:02 O2 Sat by Pulse Oximetry (%) 97 10/28/19 07:02 Pertinent Admission Physical Exam Findings: Physical General Appearance: No apparent distress HEENTM: Normocephalic, Respiratory: No Respiratory Distress, No Accessory Muscle Use Neck: Supple, Trachea in good position Cardiology: S1, S2 Abdominal: +Bowel Sounds, Musculoskeletal: full range of Motion, Gait Steady with crutches Neurological: buggy man II-XII NML intact, - Treatment Discharge Condition: Outpatient referral accepted (Patient will return to his provider, Dr. Humphrey for suboxone MAT. Medically stable for discharge.) Hospital Course: Patient attended groups, had 1:1 with his counselor. Patient was treated with suboxone while in rehab. He refused a prescription for suboxone at discharge and stated he will follow up with is provider. - Medication-Assisted Treatment (MAT) Medication-Assisted Treatment (MAT): Yes Medication Prescribed: Buprenorphine (Patient will return to his PCP, Dr. Humphrey for continued Suboxone MAT) MAT Follow-up Referral: Dr. Humphrey for Suboxone MAT. - Discharge Instructions Diet, activity, other medical instructions: Diet: as tolerated Activity: as tolerated Other medical instructions: Please follow up with Dr. Humphrey. - Diagnosis (1) Alcohol dependence with withdrawal, uncomplicated Current Visit: No Status: Chronic (2) Opioid dependence with withdrawal Current Visit: No Status: Chronic - AMA Did Patient Leave Against Medical Advice: No
[2019-10-28] MEDS: BUPRENORPHINE/NALOXONE 8 MG/2 MG FILM PACKET SL SCH (09:00)
[2019-10-28] MEDS: PRENATAL VITAMINS W/ FOLIC ACID TABLET (FP) PO SCH (09:00)
[2019-10-28] MEDS: NICOTINE 21 MG/24 HOURS TOPICAL PATCH TD SCH (09:01)
== END 2019-10-28 09:05 | disposition home or self-care (01) | DRG 772 ==
LOC: YASAS 14:39 → Y3E 14:42
PROVIDERS: ADMIT Allergy & Immunology; ATTEND Allergy & Immunology
PROC: HZ42ZZZ Group Counseling for Substance Abuse Treatment, Cognitive-Behavioral (ICD-10-PCS; principal; 2019-10-20)
DX: F11.20 Opioid dependence, uncomplicated (principal); F13.20 Sedative, hypnotic or anxiolytic dependence, uncomplicated; F10.20 Alcohol dependence, uncomplicated; F17.210 Nicotine dependence, cigarettes, uncomplicated; M16.11 Unilateral primary osteoarthritis, right hip; Z91.018 Allergy to other foods
CPT/HCPCS: J0735

== ENCOUNTER 2020-02-02 11:40 | Inpatient (IN) | payer OTHER ==
--- OUTSIDE RECORDS SUMMARY | 2020-02-02 11:46 | XMS ---
:1975 Author Organization [facility] Support Name Relationship Address Phone UE Unavailable Unavailable Unavailable [address] [place] [address] [address] [place] [address] Re-disclosure Warning The records that you are about to access may contain information from federally- assisted alcohol or drug abuse programs. If such information is present, then the following federally mandated warning applies: This information has been disclosed to you from records protected by federal confidentiality rules (42 CFR part 2). The federal rules prohibit you from making any further disclosure of this information unless further disclosure is expressly permitted by the written consent of the person to whom it pertains or as otherwise permitted by 42 CFR part 2. A general authorization for the release of medical or other information is NOT sufficient for this purpose. The Federal rules restrict any use of the information to criminally investigate or prosecute any alcohol or drug abuse patient.The records that you are about to access may contain highly sensitive health information, the redisclosure of which is protected by Article 27-F of the [facility] Public Health law. If you continue you may haveaccess to information: Regarding HIV / AIDS; Provided by facilities licensed or operated by the [facility] Office of Mental Health; or Provided by the [facility] Office for People With Developmental Disabilities. If such information is present, then the following [facility] mandated warning applies: This information has been disclosed to you from confidential records which are protected by state law. State law prohibits you from making any further disclosure of this information without the specific written consent of the person to whom it pertains, or as otherwise permitted by law. Any unauthorized further disclosure in violation of state law may result in a fine or correction sentence or both. A general authorization for the release of medical or other information is NOT sufficient authorization for further disclosure. Insurance Providers Payer name Policy type Policy ID Covered Covered alliance party's Policy P rich / Coverage alliance party ID relationship to Bernstein Inf ormation type bernstein MEDICAID [id number] SP [id number] Results ID Date Data Source [id number] 12/25/2019 10:46:00 AM EDT [facility] Name Value Range Interpretation Description Data Sup porting Code Source(s) Document(s ) SARS-CoV-2 [facility] (COVID-19) RNA panel - Unspecified specimen by FELA with probe detection This lab was ordered by and reported by [facility]. ID Date Data Source [id number] 11/09/2019 06:30:00 PM EDT [facility] Name Value Range Interpretation Code Description Data Tonya rce(s) Supporting Document(s ) SARS-COV-2 [facility] PCR This lab was ordered by [facility] [place] [facility] and re ported by [facility]. ID Date Data Source [id number] 11/01/2019 01:14:00 PM EDT [facility] Name Value Range Interpretation Code Description Data Tonya rce(s) Supporting Document(s ) SARS-CoV-2 [facility] RNA Resp Ql FELA+probe This lab was ordered by [facility] and o rted by [facility]. ID Date Data Source [id number] 10/16/2019 12:00:00 AM EDT [facility] Name Value Range Interpretation Description Data Sup porting Code Source(s) Document(s ) SARS [facility] CORONAVIRUS 2 RNA This lab was ordered by [facility] Ac ct Bill Inter and reported by [facility]. Procedure
--- NOTE | 2020-02-02 11:59 | BHS.RME ---
Substance Use & Tx History - Substance Use History Heroin Substance amount: 1 bundle Frequency of use: Daily Substance route: Injection (ex: intravenous or skin popping) Date of Last Use: 02/01/20 (started age 29) Cocaine- Powder Substance amount: $20-50 Frequency of use: Daily Substance route: Injection (ex: intravenous or skin popping) Date of Last Use: 02/01/20 (started age 29) Nicotine Substance amount: 1/2 pack Frequency of use: Daily Substance route: Smoking Date of Last Use: 02/02/20 (started age 29) Physical/Psych/Mental Status - Behavior General Behavior: Increased activity (restlessness, agitation) Eye Contact: Normal - Cooperativeness Cooperativeness: Cooperative - Thinking Thought Processes: Tight, Logical, Goal Directed - Physical Health Problems Is patient presently having any pain?: No Does patient presently have any injuries (include location): No Does patient currently have a fever: No Is patient : No COWS - Scale Resting Pulse: 0= MA 80 or Below Sweatin= Chills/Flushing Restless Observation: 3= Extraneous Movement Pupil Size: 0= Normal to Room Light Bone or Joint Aches: 2= Severe Diffuse Aches Runny Nose/ Eye Tearin= Nasal Congestion GI Upset > 30mins: 1= Stomach Cramp Tremor Observation: 1= Tremor [place], Not Seen Yawning Observation: 1= 1-2x During Session Anxiety or Irritability: 1=Feels Anxious/Irritable Goose Flesh Skin: 0=Smooth Skin COWS Score: 11
[2020-02-02 12:35] VITALS: BMI 26.3
--- OUTSIDE RECORDS SUMMARY | 2020-02-02 12:49 | XMS ---
:1975 Author Organization [facility] Support Name Relationship Address Phone UE Unavailable Unavailable Unavailable [address] [place] [address] [address] [place] [address] Re-disclosure Warning The records that you are [...] is protected by Article 27-F of the [facility] Public Health law. If you continue you may haveaccess to information: Regarding HIV / AIDS; Provided by facilities licensed or operated by the [facility] Office of Mental Health; or Provided by the [facility] Office for People With Developmental Disabilities. If such information is present, then the following [facility] mandated warning applies: This information has been [...] law may result in a fine or senior living sentence or both. A general authorization for the release of medical or other information is NOT sufficient authorization for further disclosure. Insurance Providers Payer name Policy type Policy ID Covered Covered constitution party's Policy P rich / Coverage constitution party ID relationship to [place] Inf ormation type bernstein MEDICAID [id number] SP [id number] Results ID Date Data Source [id number] 12/25/2019 10:46:00 AM EDT [facility] Name Value Range Interpretation Description Data Sup porting Code Source(s) Document(s ) SARS-CoV-2 [facility] (COVID-19) RNA panel - Unspecified specimen by FELA with probe detection This lab was ordered by and reported by [facility]. ID Date Data Source [id number] 11/09/2019 06:30:00 PM EDT [facility] Name Value Range Interpretation Code Description Data Tonya rce(s) Supporting Document(s ) SARS-COV-2 [facility] PCR This lab was ordered by [facility] [place] [facility] and re ported by [facility]. ID Date Data Source [id number] 11/01/2019 01:14:00 PM EDT [facility] Name Value Range Interpretation Code Description Data Tonya rce(s) Supporting Document(s ) SARS-CoV-2 [facility] RNA Resp Ql FELA+probe This lab was ordered by [facility] and o rted by [facility]. ID Date Data Source [id number] 10/16/2019 12:00:00 AM EDT [facility] Name Value Range Interpretation Description Data Sup porting Code Source(s) Document(s ) SARS [facility] CORONAVIRUS 2 RNA This lab was ordered by [facility] Ac ct Bill Inter and reported by [facility]. Procedure
--- NOTE | 2020-02-02 13:18 | HP ---
COWS - Scale Resting Pulse: 0= [place] 80 or Below Sweatin= Chills/Flushing Restless Observation: 3= Extraneous Movement Pupil Size: 0= Normal to Room Light Bone or Joint Aches: 2= Severe Diffuse Aches Runny Nose/ Eye Tearin= Nasal Congestion GI Upset > 30mins: 1= Stomach Cramp Tremor Observation: 1= Tremor [place], Not Seen Yawning Observation: 1= 1-2x During Session Anxiety or Irritability: 1=Feels Anxious/Irritable Goose Flesh Skin: 0=Smooth Skin COWS Score: 11 CIWA Score - Admission Criteria OASAS Guidelines: Admission for Medically Managed Detox: Requires at least one of the followin. CIWA greater than 12 2. Seizures within the past 24 hours 3. Delirium tremens within the past 24 hours 4. Hallucinations within the past 24 hours 5. Acute intervention needed for co occurring medical disorder 6. Acute intervention needed for co occurring psychiatric disorder 7. Severe withdrawal that cannot be handled at a lower level of care (continued vomiting, continued diarrhea, abnormal vital signs) requiring intravenous medication and/or fluids 8. Admitting History and Physical - Admission Chief Complaint: Mr. Domingo is a 44 yo man who presents to [facility] requesting detox admission for heroin use disorder. History of Present Illness: Mr. Domingo is a 44 yo man who presents to [facility] requesting detox admission for heroin use disorder. He was last here between September and October for detox and rehab. He relapsed one month post discharge. PMH: right hip arthritis, pending surgery PSH: none Psych: none SOC: rents a room in the [place] Legal: none Substance Use History Heroin Substance amount: 1 bundle Frequency of use: Daily Substance route: Injection (ex: intravenous or skin popping) Date of Last Use: 02/01/20 (started age 29) No hx of OD No Narcan at home Cocaine- Powder Substance amount: $20-50 Frequency of use: Daily Substance route: Injection (ex: intravenous or skin popping) Date of Last Use: 02/01/20 (started age 29) Nicotine Substance amount: 1/2 pack Frequency of use: Daily Substance route: Smoking Date of Last Use: 02/02/20 (started age 29) Methadone: program at [facility] 2 years ago, denies current purchase states "it must have been in with the drugs" Suboxone, left program one month ago Raymond Domingo, 1975 Search Date: 02/02/2020 13:19:45 PM The Drug Utilization Report below displays all of the controlled substance prescriptions, if any, that your patient has filled in the last twelve months. The information displayed on this report is compiled from pharmacy submissions to the Department, and accurately reflects the information as submitted by the pharmacies. This report was requested by: Bernadette Elizondo | Reference #: [id number] Others' Prescriptions Patient Name: Raymond Domingo Date: 1975 Address: [address] [place] [address] Sex: Male Rx Written Rx Dispensed Drug Quantity Days Supply Prescriber Name 09/03/2019 09/03/2019 lorazepam 1 mg tablet 27 7 Nicole Martinez NP Date: 1975 Address: [place] [address] Sex: Male Rx Written Rx Dispensed Drug Quantity Days Supply Prescriber Name 11/25/2019 11/26/2019 chlordiazepoxide 25 mg capsule 1 1 Tammy Kong MD 11/25/2019 11/25/2019 lorazepam 2 mg tablet 12 2 Tammy Kong MD 09/12/2019 09/15/2019 chlordiazepoxide 25 mg capsule 11 2 Sanchez Phipps (MATTIE) 08/15/2019 08/15/2019 lorazepam 2 mg tablet 8 2 Sanchez Phipps (MATTIE) 06/10/2019 06/11/2019 chlordiazepoxide 25 mg capsule 8 2 Daniel Morejon 05/07/2019 05/08/2019 chlordiazepoxide 25 mg capsule 8 2 Daniel Morejon Date: 1975 Address: [address] [place] [id number] Sex: Male Rx Written Rx Dispensed Drug Quantity Days Supply Prescriber Name 03/03/2019 03/04/2019 suboxone 12 mg-3 mg sl film 14 14 Julio Garcia MD Date: 1975 Address: [address] [place] [address] [place] [address] Sex: Male Rx Written Rx Dispensed Drug Quantity Days Supply Prescriber Name 12/30/2019 12/31/2019 suboxone 8 mg-2 mg sl film 90 30 Bola Humphrey MD 12/02/2019 12/02/2019 suboxone 8 mg-2 mg sl film 90 30 Bola Humphrey MD 10/28/2019 11/06/2019 suboxone 8 mg-2 mg sl film 90 30 MilagroBola jackson MD 10/27/2019 10/28/2019 suboxone 8 mg-2 mg sl film 14 7 Jeaneth Elias AUGUSTINE 09/30/2019 09/30/2019 suboxone 8 mg-2 mg sl film 90 30 Bola Humphrey MD 09/02/2019 09/02/2019 suboxone 8 mg-2 mg sl film 90 30 Bola Humphrey MD History Source: Patient Limitations to Obtaining History: No Limitations - Past Medical History Musculoskeletal: Yes: Other (Osteoarthritis) - Past Surgical History Past Surgical History: Yes: None - Smoking History Smoking history: Current every day smoker Have you smoked in the past 12 months: Yes Aproximately how many cigarettes per day: 10 - Alcohol/Substance Use History of Substance Use: reports: Tranquilizers Date of Last Use: 10/16/19 - Social History ADL: Independent Occupation: unemployed History of Recent Travel: No Admission [facility] Allergies/Adverse Reactions: Allergies Allergy/AdvReac Type Severity Reaction Status Date / Time tomato Allergy Severe Hives Verified 02/02/20 12:36 No Known Drug Allergies Allergy Verified 02/02/20 12:36 Exam Limitations: No Limitations - Ebola screening Have you traveled outside of the country in the last 21 days: No Have you been sick,other than usual withdrawal symptoms: No Do you have a fever: No - Review of Systems Constitutional: No Symptoms Reported EENT: reports: No Symptoms Reported Respiratory: reports: No Symptoms reported Cardiac: reports: No Symptoms Reported GI: reports: Diarrhea : reports: No Symptoms Reported Musculoskeletal: reports: Joint Pain (right hip) Integumentary: reports: Other (left forarm injection site erythema) Neuro: reports: No Symptoms reported Endocrine: reports: No Symptoms Reported Hematology: reports: No Symptoms Reported Psychiatric: reports: No Sypmtoms Reported Patient History - Patient Medical History Hx Asthma: No Hx Chronic Obstructive Pulmonary Disease (COPD): No Hx Cardiac Disorders: No Hx Hypertension: No Hx Seizures: No Hx Diabetes: No Hx Gastrointestinal Disorders: No Hx Genitourinary Disorders: No Hx Sexually Transmitted Disorders: No Hx Renal Disease (ESRD): No Hx Depression: No Hx Suicide Attempt: No Hx Schizophrenia: No - Patient Surgical History Past Surgical History: Yes Hx Neurologic Surgery: No Hx Cataract Extraction: No Hx Cardiac Surgery: No Hx Lung Surgery: No Hx Breast Surgery: No Hx Breast Biopsy: No Hx Abdominal Surgery: No Hx Appendectomy: No Hx Cholecystectomy: No Hx Genitourinary Surgery: No Hx Section: No Hx Orthopedic Surgery: No Other Surgical History: Lower R leg sx from a dog bite - PPD History Previous Implant?: Yes Documented Results: Negative w/proof Implanted On Prior [facility] Admission?: Yes Date: 10/18/19 Results: 0MM - Smoking Cessation Smoking history: Current every day smoker Have you smoked in the past 12 months: Yes Aproximately how many cigarettes per day: 10 Hx Chewing Tobacco Use: No Initiated information on smoking cessation: Yes 'Breaking Loose' booklet given: 02/02/20 Admission Physical Exam BHS - Vital Signs Vital Signs: Vital Signs - 24 hr 02/02/20 12:29 Temperature 97.3 F L Pulse Rate 75 Respiratory 16 Rate Blood Pressure 122/68 - Physical General Appearance: Yes: Nourished, Appropriately Dressed, Irritable HEENTM: Yes: EOMI, Hearing grossly Normal, Normocephalic, Normal Voice Respiratory: Yes: Lungs Clear, No Respiratory Distress, No Accessory Muscle Use Neck: Yes: Within Normal Limits, Supple Breast: Yes: Breast Exam Deferred Cardiology: Yes: Regular Rhythm, Regular Rate Abdominal: Yes: Normal Bowel Sounds, Non Tender, Flat, Soft Back: Yes: Normal Inspection Musculoskeletal: Yes: Other (unsteady gait, uses cane to ambulate) Extremities: Yes: Other (scars on legs, prior trauma) Integumentary: Yes: Track Bains (left medial forearm, erythema, no purulent discharge) Lymphatic: Yes: Within Normal Limits - Diagnostic (1) Cannabis dependence Current Visit: Yes Status: Acute (2) Cocaine dependence Current Visit: Yes Status: Acute Qualifiers: Substance use status: uncomplicated Qualified Code(s): F14.20 - Cocaine de pendence, uncomplicated (3) Nicotine dependence Current Visit: Yes Status: Acute Qualifiers: Nicotine product type: cigarettes Substance use status: uncomplicated Qualified Code(s): F17.210 - Nicotine dependence, cigarettes, uncomplicated (4) Opioid dependence with withdrawal Current Visit: No Status: Chronic (5) Osteoarthritis of right hip Current Visit: No Status: Chronic Qualifiers: Cleared for Admission [facility] - Detox or Rehab [facility] Level of Care: Medically Managed Detox Regimen/Protocol: Methadone Breathalyzer - Breathalyzer Breathalyzer: 0 Urine Drug Screen - Test Device Lot number: [id number] Expiration date: 07/29/21 - Control Is test valid?: Yes - Results Drug screen NEGATIVE: No Urine drug screen results: THC-Marijuana, CHRISTIN-Cocaine, FEN-Fentanyl, MOP- Opiates, MTD-Methadone Inpatient Rehab Admission - Rehab Decision to Admit Inpatient rehab admission?: No
[2020-02-02] MEDS ORDERED: METHOCARBAMOL 500 MG TABLET PO PRN (13:21)
[2020-02-02] MEDS ORDERED: ACETAMINOPHEN 325 MG TABLET (FP) PO PRN ×2 (13:21)
[2020-02-02] MEDS ORDERED: NICOTINE POLACRILEX 2 MG GUM BUC PRN (13:21)
[2020-02-02] MEDS ORDERED: cloNIDine HCL 0.1 MG TABLET PO PRN (13:21)
[2020-02-02] MEDS ORDERED: BISMUTH SUBSALICYLATE 262 MG/15 ML BTL PO PRN (13:21)
[2020-02-02] MEDS ORDERED: MAG HYDROX/AL HYDROX/SIMETH 30 ML UNIT-DOSE CUP PO PRN (13:21)
[2020-02-02] MEDS ORDERED: MAGNESIUM CITRATE 300 ML BOTTLE PO PRN (13:21)
[2020-02-02] MEDS ORDERED: ONDANSETRON *ODT* 4 MG TABLET SL PRN (13:21)
[2020-02-02] MEDS ORDERED: MENTHOL/PHENOL 1 EACH UD MM PRN (13:21)
[2020-02-02] MEDS ORDERED: MAGNESIUM HYDROX 2400MG/30ML ORAL SUSPENSION 30 ML CUP PO PRN (13:21)
[2020-02-02] MEDS ORDERED: METHADONE HCL 10 MG TABLET (FOR DETOX USE ONLY) PO ONE (13:21)
[2020-02-02] MEDS ORDERED: chlordiazePOXIDE HCL 25 MG CAPSULE PO PRN (13:28)
[2020-02-02] MEDS: GABAPENTIN 400 MG CAPSULE PO SCH ×2 (14:05→23:02)
[2020-02-02] MEDS: NICOTINE 21 MG/24 HOURS TOPICAL PATCH TD SCH (14:57)
[2020-02-02] MEDS: DICLOFENAC SODIUM 25 MG TABLET.DR PO SCH (14:57)
[2020-02-02] MEDS: hydrOXYzine PAMOATE 25 MG CAPSULE (FP) PO SCH ×3 (14:57→23:02)
[2020-02-02 17:51] LABS: HEMOGLOBIN 13.8 GM/dL (11.7-16.9); MCH 29.8 pg (25.7-33.7); MCHC 33.7 g/dl (32.0-35.9); MEAN CELL VOLUME 88.5 fl (80-96); MEAN PLT VOLUME 9.9 fl (7.5-11.1); PLATELET COUNT 201 K/MM3 (134-434); RBC 4.63 M/mm3 (4.00-5.60); RDW 13.6 % (11.9-15.9); WHITE BLOOD COUNT 15.6 K/mm3 (4.0-10.0)
[2020-02-02] MEDS: chlordiazePOXIDE HCL 25 MG CAPSULE PO SCH ×2 (17:56→23:02)
[2020-02-02 18:04] LABS: ALBUMIN 3.5 g/dl (3.4-5.0); POTASSIUM 3.9 mmol/L (3.5-5.1)
[2020-02-02 18:21] LABS: BILIRUBIN,TOTAL 0.8 mg/dL (0.2-1); CALCIUM 8.9 mg/dL (8.5-10.1); CREATININE 1.3 mg/dL (0.55-1.3); TOT PROT 7.5 g/dl (6.4-8.2)
[2020-02-02] MEDS: MELATONIN 5 MG TABLETS PO SCH (23:01)
[2020-02-02] MEDS: THIAMINE HCL 100 MG TABLET (FP) PO SCH (23:02)
[2020-02-03] MEDS: DICLOFENAC SODIUM 25 MG TABLET.DR PO SCH ×3 (00:08→23:36)
[2020-02-03] MEDS: hydrOXYzine PAMOATE 25 MG CAPSULE (FP) PO SCH (06:41)
[2020-02-03] MEDS: chlordiazePOXIDE HCL 25 MG CAPSULE PO SCH ×4 (06:41→23:36)
[2020-02-03] MEDS: GABAPENTIN 400 MG CAPSULE PO SCH ×3 (06:41→23:35)
[2020-02-03] MEDS ORDERED: hydrOXYzine PAMOATE 25 MG CAPSULE (FP) PO PRN (08:38)
[2020-02-03] MEDS ORDERED: METHADONE HCL 5 MG TABLET (FOR DETOX USE ONLY) ONE (09:00)
[2020-02-03] MEDS ORDERED: METHADONE HCL 10 MG TABLET (FOR DETOX USE ONLY) ONE (09:00)
[2020-02-03] MEDS ORDERED: METHADONE (DETOX) 20 MG, METHADONE (DETOX) 5 MG PO ONE (10:00)
[2020-02-03] MEDS: NICOTINE 21 MG/24 HOURS TOPICAL PATCH TD SCH (10:43)
[2020-02-03] MEDS: PRENATAL VITAMINS W/ FOLIC ACID TABLET (FP) PO SCH (10:43)
--- NOTE | 2020-02-03 11:09 | PN ---
[facility] CIWA - CIWA Score Nausea/Vomitin-No Nausea/No Vomiting Muscle Tremors: 3 Anxiety: 2 Agitation: 2 Paroxysmal Sweats: 2 Orientation: 0-Oriented Tacttile Disturbances: 0-None Auditory Disturbances: 0-None Visual Disturbances: 0-None Headache: 0-None Present CIWA-Ar Total Score: 9 BHS COWS - Scale Resting Pulse: 0= [place] 80 or Below Sweatin= Chills/Flushing Restless Observation: 1= Difficult to Sit Still Pupil Size: 0= Normal to Room Light Bone or Joint Aches: 2= Severe Diffuse Aches Runny Nose/ Eye Tearin= Nasal Congestion GI Upset > 30mins: 0= None Tremor Observation of Outstretched Hands: 1= Tremor [place], Not Seen Yawning Observation: 2= >3x During Session Anxiety or Irritability: 2=Irritable/Anxious Goose Flesh Skin: 0=Smooth Skin COWS Score: 10 BHS Progress Note (SOAP) Subjective: sweats irritable agitation interrupted sleep body aches Objective: 02/03/20 11:08 Vital Signs Temperature 97.1 F L 02/03/20 08:48 Pulse Rate 67 02/03/20 08:48 Respiratory Rate 18 02/03/20 08:48 Blood Pressure 107/59 L 02/03/20 08:48 O2 Sat by Pulse Oximetry (%) 99 02/03/20 08:48 Laboratory Tests 02/02/20 02/02/20 02/02/20 13:30 13:30 13:30 WBC 15.6 H RBC 4.63 Hgb 13.8 Hct 41.0 MCV 88.5 MCH 29.8 MCHC 33.7 RDW 13.6 D Plt Count 201 MPV 9.9 Sodium 140 Potassium 3.9 Chloride 104 Carbon Dioxide 30 Anion Gap 6 L BUN 26.0 H Creatinine 1.3 Est GFR (CKD-EPI)AfAm 76.37 Est GFR (CKD-EPI)NonAf 65.90 Random Glucose 116 H Calcium 8.9 Total Bilirubin 0.8 AST 52 H ALT 77 H Alkaline Phosphatase 84 Total Protein 7.5 Albumin 3.5 Syphilis Serology Non-reactive COVID-19 (FELA) 02/02/20 14:30 WBC RBC Hgb Hct MCV MCH MCHC RDW Plt Count MPV Sodium Potassium Chloride Carbon Dioxide Anion Gap BUN Creatinine Est GFR (CKD-EPI)AfAm Est GFR (CKD-EPI)NonAf Random Glucose Calcium Total Bilirubin AST ALT Alkaline Phosphatase Total Protein Albumin Syphilis Serology COVID-19 (FELA) Not detected labs noted aaox3 ambulating no acute distress Assessment: 02/03/20 11:09 withdrawals Plan: continue detox
[2020-02-03] MEDS: MELATONIN 5 MG TABLETS PO SCH (23:35)
[2020-02-03] MEDS: THIAMINE HCL 100 MG TABLET (FP) PO SCH (23:36)
[2020-02-04] MEDS: GABAPENTIN 400 MG CAPSULE PO SCH ×2 (06:49→13:50)
[2020-02-04] MEDS: chlordiazePOXIDE HCL 25 MG CAPSULE PO SCH ×2 (06:49→10:37)
[2020-02-04 09:45] VITALS: BP 150/88; PULSE 64; TEMP 98.1
[2020-02-04] MEDS ORDERED: METHADONE HCL 10 MG TABLET (FOR DETOX USE ONLY) PO ONE (10:00)
[2020-02-04] MEDS: NICOTINE 21 MG/24 HOURS TOPICAL PATCH TD SCH (10:25)
[2020-02-04] MEDS: PRENATAL VITAMINS W/ FOLIC ACID TABLET (FP) PO SCH (10:25)
[2020-02-04] MEDS: DICLOFENAC SODIUM 25 MG TABLET.DR PO SCH (10:39)
--- NOTE | 2020-02-04 11:43 | PN ---
[facility] CIWA - CIWA Score Nausea/Vomitin-No Nausea/No Vomiting Muscle Tremors: 2 Anxiety: 2 Agitation: 2 Paroxysmal Sweats: 2 Orientation: 0-Oriented Tacttile Disturbances: 0-None Auditory Disturbances: 0-None Visual Disturbances: 0-None Headache: 0-None Present CIWA-Ar Total Score: 8 S COWS - Scale Resting Pulse: 0= [place] 80 or Below Sweatin= No chills or Flushing Restless Observation: 1= Difficult to Sit Still Pupil Size: 0= Normal to Room Light Bone or Joint Aches: 2= Severe Diffuse Aches Runny Nose/ Eye Tearin= Nasal Congestion GI Upset > 30mins: 2= Nausea/Diarrhea Tremor Observation of Outstretched Hands: 0= None Yawning Observation: 0= None Anxiety or Irritability: 2=Irritable/Anxious Goose Flesh Skin: 3=Piloerection COWS Score: 11 S Progress Note (SOAP) Subjective: sweats shakes chills body aches irritable goose bumps on skin Objective: 02/04/20 11:39 Vital Signs Temperature 98.1 F 02/04/20 08:45 Pulse Rate 64 02/04/20 08:45 Respiratory Rate 16 02/04/20 08:45 Blood Pressure 150/88 02/04/20 08:45 O2 Sat by Pulse Oximetry (%) 96 02/04/20 08:45 Laboratory Tests 02/02/20 02/02/20 02/02/20 13:30 13:30 13:30 WBC 15.6 H RBC 4.63 Hgb 13.8 Hct 41.0 MCV 88.5 MCH 29.8 MCHC 33.7 RDW 13.6 D Plt Count 201 MPV 9.9 Sodium 140 Potassium 3.9 Chloride 104 Carbon Dioxide 30 Anion Gap 6 L BUN 26.0 H Creatinine 1.3 Est GFR (CKD-EPI)AfAm 76.37 Est GFR (CKD-EPI)NonAf 65.90 Random Glucose 116 H Calcium 8.9 Total Bilirubin 0.8 AST 52 H ALT 77 H Alkaline Phosphatase 84 Total Protein 7.5 Albumin 3.5 Syphilis Serology Non-reactive COVID-19 (FELA) 02/02/20 14:30 WBC RBC Hgb Hct MCV MCH MCHC RDW Plt Count MPV Sodium Potassium Chloride Carbon Dioxide Anion Gap BUN Creatinine Est GFR (CKD-EPI)AfAm Est GFR (CKD-EPI)NonAf Random Glucose Calcium Total Bilirubin AST ALT Alkaline Phosphatase Total Protein Albumin Syphilis Serology COVID-19 (FELA) Not detected labs noted aaox3 ambulating no acute distress Assessment: 02/04/20 11:40 withdrawals Plan: continue detox
[2020-02-05] MEDS ORDERED: chlordiazePOXIDE HCL 10 MG CAPSULE PO PRN
[2020-02-05] MEDS ORDERED: chlordiazePOXIDE HCL 10 MG CAPSULE PO SCH (05:00)
[2020-02-05] MEDS ORDERED: METHADONE (DETOX) 10 MG, METHADONE (DETOX) 5 MG PO ONE (10:00)
[2020-02-06] MEDS ORDERED: chlordiazePOXIDE HCL 10 MG CAPSULE PO SCH (05:00)
[2020-02-06] MEDS ORDERED: METHADONE HCL 10 MG TABLET (FOR DETOX USE ONLY) PO ONE (10:00)
[2020-02-07] MEDS ORDERED: chlordiazePOXIDE HCL 10 MG CAPSULE PO ONE (05:00)
[2020-02-07] MEDS ORDERED: METHADONE HCL 5 MG TABLET (FOR DETOX USE ONLY) PO ONE (06:00)
== END 2020-02-04 15:20 | disposition left against medical advice (07) | DRG 770 ==
LOC: YASAS 11:40 → Y6N 12:44
PROVIDERS: ADMIT Allergy & Immunology; ATTEND Allergy & Immunology
PROC: HZ2ZZZZ Detoxification Services for Substance Abuse Treatment (ICD-10-PCS; principal; 2020-02-02)
DX: F11.23 Opioid dependence with withdrawal (principal); F10.230 Alcohol dependence with withdrawal, uncomplicated; F14.20 Cocaine dependence, uncomplicated; F12.20 Cannabis dependence, uncomplicated; F17.210 Nicotine dependence, cigarettes, uncomplicated; M16.11 Unilateral primary osteoarthritis, right hip; R26.89 Other abnormalities of gait and mobility; Z99.89 Dependence on other enabling machines and devices; Z91.018 Allergy to other foods
CPT/HCPCS: 36415; 80053; 85027; 86780; C9803; U0003

== ENCOUNTER 2020-03-30 15:32 | Inpatient (IN) | payer OTHER ==
[2020-03-30 16:44] VITALS: BMI 25.8
[2020-03-30] MEDS ORDERED: ACETAMINOPHEN 325 MG TABLET (FP) PO PRN (18:58)
[2020-03-30] MEDS ORDERED: MENTHOL/PHENOL 1 EACH UD MM PRN (18:58)
[2020-03-30] MEDS ORDERED: MAGNESIUM CITRATE 300 ML BOTTLE PO PRN (18:58)
[2020-03-30] MEDS ORDERED: MAG HYDROX/AL HYDROX/SIMETH 30 ML UNIT-DOSE CUP PO PRN (18:58)
[2020-03-30] MEDS ORDERED: METHOCARBAMOL 500 MG TABLET PO PRN (18:58)
[2020-03-30] MEDS ORDERED: chlordiazePOXIDE HCL 25 MG CAPSULE PO PRN (18:58)
[2020-03-30] MEDS ORDERED: ONDANSETRON *ODT* 4 MG TABLET SL PRN (18:58)
[2020-03-30] MEDS ORDERED: METHADONE HCL 10 MG TABLET (FOR DETOX USE ONLY) PO ONE (18:58)
[2020-03-30] MEDS ORDERED: NICOTINE POLACRILEX 2 MG GUM BUC PRN (18:58)
[2020-03-30] MEDS ORDERED: MAGNESIUM HYDROX 2400MG/30ML ORAL SUSPENSION 30 ML CUP PO PRN (18:58)
[2020-03-30] MEDS ORDERED: cloNIDine HCL 0.1 MG TABLET PO PRN (18:58)
[2020-03-30] MEDS ORDERED: BISMUTH SUBSALICYLATE 524 MG/30 ML UD PO PRN (18:58)
[2020-03-30] MEDS: chlordiazePOXIDE HCL 25 MG CAPSULE PO SCH ×2 (19:50→22:42)
[2020-03-30] MEDS: NICOTINE 7 MG/24 HOURS TOPICAL PATCH TD SCH (20:01)
[2020-03-30] MEDS: ACETAMINOPHEN 325 MG TABLET (FP) PO PRN (20:04)
[2020-03-30] MEDS: PRENATAL VITAMINS W/ FOLIC ACID TABLET (FP) PO SCH (20:19)
[2020-03-30] MEDS ORDERED: DICLOFENAC SODIUM PO SCH (22:00)
[2020-03-30] MEDS: GABAPENTIN 400 MG CAPSULE PO SCH (22:42)
[2020-03-30] MEDS: THIAMINE HCL 100 MG TABLET (FP) PO SCH (22:42)
[2020-03-30] MEDS: MELATONIN 5 MG TABLETS PO SCH (22:43)
[2020-03-30] MEDS: hydrOXYzine PAMOATE 25 MG CAPSULE (FP) PO SCH (22:44)
[2020-03-31] MEDS: GABAPENTIN 400 MG CAPSULE PO SCH ×3 (05:44→22:58)
[2020-03-31] MEDS: hydrOXYzine PAMOATE 25 MG CAPSULE (FP) PO SCH ×3 (05:44→13:05)
[2020-03-31] MEDS: chlordiazePOXIDE HCL 25 MG CAPSULE PO SCH ×4 (05:44→22:58)
[2020-03-31] MEDS ORDERED: METHADONE HCL 10 MG TABLET (FOR DETOX USE ONLY) ONE (08:48)
[2020-03-31] MEDS ORDERED: METHADONE HCL 5 MG TABLET (FOR DETOX USE ONLY) ONE (08:49)
[2020-03-31] MEDS ORDERED: METHADONE (DETOX) 20 MG, METHADONE (DETOX) 5 MG PO ONE (10:00)
[2020-03-31] MEDS: PRENATAL VITAMINS W/ FOLIC ACID TABLET (FP) PO SCH (10:09)
[2020-03-31] MEDS: ACETAMINOPHEN 325 MG TABLET (FP) PO PRN (10:10)
[2020-03-31] MEDS: NICOTINE 7 MG/24 HOURS TOPICAL PATCH TD SCH (10:19)
[2020-03-31] MEDS: NICOTINE 21 MG/24 HOURS TOPICAL PATCH TD SCH (11:13)
[2020-03-31 13:04] LABS: HEMATOCRIT 36.6 % (35.4-49); MCH 28.4 pg (25.7-33.7); MCHC 32.9 g/dl (32.0-35.9); MEAN CELL VOLUME 86.4 fl (80-96); MEAN PLT VOLUME 8.7 fl (7.5-11.1); PLATELET COUNT 310 K/MM3 (134-434); RBC 4.23 M/mm3 (4.00-5.60); RDW 13.7 % (11.9-15.9); WHITE BLOOD COUNT 6.4 K/mm3 (4.0-10.0)
[2020-03-31] MEDS: IBUPROFEN 400 MG TABLET (FP) PO PRN (13:04)
[2020-03-31 13:06] LABS: POTASSIUM 4.2 mmol/L (3.5-5.1)
[2020-03-31 13:10] LABS: BLOOD UREA NITROGEN 21.8 mg/dL (7-18); CALCIUM 8.6 mg/dL (8.5-10.1)
[2020-03-31 13:12] LABS: CREATININE 0.7 mg/dL (0.55-1.3)
[2020-03-31 13:15] LABS: TOT PROT 5.9 g/dl (6.4-8.2)
[2020-03-31] MEDS ORDERED: HYDROCORTISONE 1% TOPICAL CREAM 30 GM TUBE TP PRN (18:49)
[2020-03-31] MEDS: MELATONIN 5 MG TABLETS PO SCH (22:58)
[2020-03-31] MEDS: THIAMINE HCL 100 MG TABLET (FP) PO SCH (23:12)
[2020-04-01] MEDS: IBUPROFEN 400 MG TABLET (FP) PO PRN ×2 (05:46→13:07)
[2020-04-01] MEDS: GABAPENTIN 400 MG CAPSULE PO SCH ×3 (05:46→23:52)
[2020-04-01] MEDS: chlordiazePOXIDE HCL 25 MG CAPSULE PO SCH ×4 (05:46→23:52)
[2020-04-01] MEDS ORDERED: METHADONE HCL 10 MG TABLET (FOR DETOX USE ONLY) PO ONE (10:00)
[2020-04-01] MEDS: PRENATAL VITAMINS W/ FOLIC ACID TABLET (FP) PO SCH (10:10)
[2020-04-01] MEDS: NICOTINE 21 MG/24 HOURS TOPICAL PATCH TD SCH (10:12)
[2020-04-01] MEDS: ACETAMINOPHEN 325 MG TABLET (FP) PO PRN (17:38)
[2020-04-01] MEDS: MELATONIN 5 MG TABLETS PO SCH (23:52)
[2020-04-01] MEDS: THIAMINE HCL 100 MG TABLET (FP) PO SCH (23:52)
[2020-04-02] MEDS ORDERED: chlordiazePOXIDE HCL 10 MG CAPSULE PO PRN
[2020-04-02] MEDS: chlordiazePOXIDE HCL 10 MG CAPSULE PO SCH ×4 (06:18→22:01)
[2020-04-02] MEDS: GABAPENTIN 400 MG CAPSULE PO SCH ×3 (06:19→21:59)
[2020-04-02] MEDS: IBUPROFEN 400 MG TABLET (FP) PO PRN (07:16)
[2020-04-02] MEDS ORDERED: METHADONE HCL 10 MG TABLET (FOR DETOX USE ONLY) ONE (08:34)
[2020-04-02] MEDS ORDERED: METHADONE HCL 5 MG TABLET (FOR DETOX USE ONLY) ONE (08:35)
[2020-04-02] MEDS ORDERED: METHADONE (DETOX) 10 MG, METHADONE (DETOX) 5 MG PO ONE (10:00)
[2020-04-02] MEDS: PRENATAL VITAMINS W/ FOLIC ACID TABLET (FP) PO SCH (10:21)
[2020-04-02] MEDS: NICOTINE 21 MG/24 HOURS TOPICAL PATCH TD SCH (10:21)
[2020-04-02 11:12] LABS: POTASSIUM 4.5 mmol/L (3.5-5.1)
[2020-04-02 11:18] LABS: CALCIUM 9.2 mg/dL (8.5-10.1)
[2020-04-02 11:19] LABS: BLOOD UREA NITROGEN 19.5 mg/dL (7-18)
[2020-04-02 11:23] LABS: CREATININE 0.9 mg/dL (0.55-1.3)
[2020-04-02] MEDS: DICLOFENAC SODIUM 25 MG TABLET.DR PO SCH ×2 (14:18→21:59)
[2020-04-02] MEDS ORDERED: cloNIDine HCL 0.1 MG TABLET PO ONE (15:03)
[2020-04-02] MEDS: THIAMINE HCL 100 MG TABLET (FP) PO SCH (21:59)
[2020-04-02] MEDS: MELATONIN 5 MG TABLETS PO SCH (21:59)
[2020-04-02] MEDS: cloNIDine HCL 0.1 MG TABLET PO PRN (22:22)
[2020-04-03] MEDS: GABAPENTIN 400 MG CAPSULE PO SCH ×3 (06:37→22:04)
[2020-04-03] MEDS: chlordiazePOXIDE HCL 10 MG CAPSULE PO SCH ×2 (06:37→17:10)
[2020-04-03] MEDS ORDERED: METHADONE HCL 10 MG TABLET (FOR DETOX USE ONLY) PO ONE (10:00)
[2020-04-03] MEDS: PRENATAL VITAMINS W/ FOLIC ACID TABLET (FP) PO SCH (10:05)
[2020-04-03] MEDS: DICLOFENAC SODIUM 25 MG TABLET.DR PO SCH ×2 (10:05→22:05)
[2020-04-03] MEDS: NICOTINE 21 MG/24 HOURS TOPICAL PATCH TD SCH (10:05)
[2020-04-03] MEDS: cloNIDine HCL 0.1 MG TABLET PO PRN ×2 (12:09→22:05)
[2020-04-03] MEDS ORDERED: diphenhydrAMINE HCL 25 MG CAPSULE (FP) PO ONE (15:46)
[2020-04-03] MEDS: ACETAMINOPHEN 325 MG TABLET (FP) PO PRN (17:11)
[2020-04-03] MEDS: THIAMINE HCL 100 MG TABLET (FP) PO SCH (22:05)
[2020-04-03] MEDS: MELATONIN 5 MG TABLETS PO SCH (22:05)
[2020-04-04] MEDS ORDERED: chlordiazePOXIDE HCL 10 MG CAPSULE PO ONE (05:00)
[2020-04-04] MEDS: GABAPENTIN 400 MG CAPSULE PO SCH (05:43)
[2020-04-04] MEDS ORDERED: METHADONE HCL 5 MG TABLET (FOR DETOX USE ONLY) PO ONE (06:00)
[2020-04-04] MEDS: ACETAMINOPHEN 325 MG TABLET (FP) PO PRN (06:15)
[2020-04-04 06:17] VITALS: BP 141/77; PULSE 63; TEMP 97.2
[2020-04-04] MEDS: PRENATAL VITAMINS W/ FOLIC ACID TABLET (FP) PO SCH (09:00)
[2020-04-04] MEDS: DICLOFENAC SODIUM 25 MG TABLET.DR PO SCH (09:00)
[2020-04-04] MEDS: NICOTINE 21 MG/24 HOURS TOPICAL PATCH TD SCH (09:19)
== END 2020-04-04 09:10 | disposition home or self-care (01) | DRG 773 ==
LOC: YASAS 15:32 → Y3N 18:35
PROVIDERS: ADMIT Allergy & Immunology; ATTEND Allergy & Immunology
PROC: HZ2ZZZZ Detoxification Services for Substance Abuse Treatment (ICD-10-PCS; principal; 2020-03-30)
DX: F11.23 Opioid dependence with withdrawal (principal); F10.230 Alcohol dependence with withdrawal, uncomplicated; F13.230 Sedative, hypnotic or anxiolytic dependence with withdrawal, uncomplicated; F14.20 Cocaine dependence, uncomplicated; F12.20 Cannabis dependence, uncomplicated; F17.213 Nicotine dependence, cigarettes, with withdrawal; F19.24 Other psychoactive substance dependence with psychoactive substance-induced mood disorder; F43.10 Post-traumatic stress disorder, unspecified; R00.0 Tachycardia, unspecified; M16.11 Unilateral primary osteoarthritis, right hip; Z91.018 Allergy to other foods
CPT/HCPCS: 36415; 80048; 80053; 85027; 86780; C9803; J0735; U0003

== ENCOUNTER 2022-07-01 12:01 | Inpatient (IN) | payer OTHER ==
[2022-07-01 12:14] VITALS: BMI 23.6
[2022-07-01] MEDS ORDERED: BENZOCAINE 20 % GEL TUBE MM PRN (13:30)
[2022-07-01] MEDS ORDERED: IBUPROFEN 600 MG TABLET (FP) PO ONE (13:35)
[2022-07-01] MEDS: IBUPROFEN 600 MG TABLET (FP) PO PRN (13:36)
[2022-07-01] MEDS ORDERED: BISMUTH SUBSALICYLATE 524 MG/30 ML PO PRN (14:21)
[2022-07-01] MEDS ORDERED: MAGNESIUM HYDROX 2400MG/30ML ORAL SUSPENSION 30 ML CUP PO PRN (14:21)
[2022-07-01] MEDS ORDERED: LOPERAMIDE HCL 2 MG CAPSULE PO PRN (14:21)
[2022-07-01] MEDS ORDERED: DICYCLOMINE HCL 10 MG CAPSULE PO PRN (14:21)
[2022-07-01] MEDS ORDERED: methaDONE HCL 10 MG TABLET (FOR DETOX USE ONLY) PO ONE (14:21)
[2022-07-01] MEDS ORDERED: BENZOCAINE/MENTHOL (CHLORASEPTIC ) LOZENGE MM PRN (14:21)
[2022-07-01] MEDS ORDERED: hydrOXYzine PAMOATE 25 MG CAPSULE (FP) PO PRN (14:21)
[2022-07-01] MEDS ORDERED: METHOCARBAMOL 500 MG TABLET PO PRN (14:21)
[2022-07-01] MEDS ORDERED: NALOXONE HCL (KLOXXADO) 8 MG SPRAY NS PRN (14:21)
[2022-07-01] MEDS ORDERED: ONDANSETRON *ODT* 4 MG TABLET SL PRN (14:21)
[2022-07-01] MEDS ORDERED: NICOTINE 10 MG CARTRIDGE (INHALER) IH PRN (14:21)
[2022-07-01] MEDS ORDERED: IBUPROFEN 400 MG TABLET (FP) PO PRN (14:21)
[2022-07-01] MEDS ORDERED: MAG HYDROX/AL HYDROX/SIMETH 30 ML UNIT-DOSE CUP PO PRN (14:21)
[2022-07-01] MEDS ORDERED: ACETAMINOPHEN 325 MG TABLET (FP) PO PRN ×2 (14:21)
[2022-07-01] MEDS ORDERED: cloNIDine HCL 0.1 MG TABLET PO PRN (14:21)
[2022-07-01] MEDS ORDERED: IBUPROFEN 600 MG TABLET (FP) PO PRN (14:21)
[2022-07-01] MEDS ORDERED: POLYETHYLENE GLYCOL (HEALTHYLAX) 3350 17 GM PACKET PO PRN (14:21)
[2022-07-01] MEDS ORDERED: clonazePAM 0.5 MG ODT TABLETS SL PRN (14:37)
[2022-07-01] MEDS ORDERED: methaDONE HCL 10 MG TABLET (FOR DETOX USE ONLY) ONE (15:17)
[2022-07-01] MEDS: AMOX TR/POT CLAV 875MG/125MG TABLETS (FP) PO SCH (18:30)
[2022-07-01] MEDS: LIDOCAINE 5% TOPICAL PATCH TP SCH (18:30)
[2022-07-01 18:31] VITALS: RESP 18
[2022-07-01] MEDS ORDERED: LIDOCAINE PATCH REMOVAL MC SCH (22:00)
[2022-07-01] MEDS ORDERED: THIAMINE HCL 100 MG TABLET (FP) PO SCH (22:00)
[2022-07-01] MEDS ORDERED: MELATONIN 5 MG TABLETS PO SCH (22:00)
[2022-07-01] MEDS: CHLORHEXIDINE GLUCONATE 0.12% 15ML CUP MM SCH (22:25)
[2022-07-02] MEDS: IBUPROFEN 600 MG TABLET (FP) PO PRN (04:19)
[2022-07-02 06:39] VITALS: BP 147/93; PULSE 63; TEMP 97.8
[2022-07-02] MEDS: AMOX TR/POT CLAV 875MG/125MG TABLETS (FP) PO SCH (07:20)
[2022-07-02] MEDS ORDERED: PRENATAL VITAMINS W/ FOLIC ACID TABLET (FP) PO SCH (10:00)
[2022-07-02] MEDS: CHLORHEXIDINE GLUCONATE 0.12% 15ML CUP MM SCH (10:18)
[2022-07-02] MEDS: LIDOCAINE 5% TOPICAL PATCH TP SCH (10:18)
[2022-07-03] MEDS ORDERED: methaDONE HCL 10 MG TABLET (FOR DETOX USE ONLY) PO ONE (10:00)
[2022-07-05] MEDS ORDERED: methaDONE HCL 10 MG TABLET (FOR DETOX USE ONLY) PO ONE (10:00)
== END 2022-07-02 08:20 | disposition left against medical advice (07) | DRG 770 ==
LOC: YASAS 12:01 → Y3N 17:31
PROVIDERS: ADMIT Allergy & Immunology; ATTEND Surgery
PROC: HZ2ZZZZ Detoxification Services for Substance Abuse Treatment (ICD-10-PCS; principal; 2022-07-01)
DX: F11.23 Opioid dependence with withdrawal (principal); F10.230 Alcohol dependence with withdrawal, uncomplicated; F14.20 Cocaine dependence, uncomplicated; F12.20 Cannabis dependence, uncomplicated; F17.210 Nicotine dependence, cigarettes, uncomplicated; I10 Essential (primary) hypertension; J45.909 Unspecified asthma, uncomplicated; K08.89 Other specified disorders of teeth and supporting structures; M16.11 Unilateral primary osteoarthritis, right hip; Z86.19 Personal history of other infectious and parasitic diseases
CPT/HCPCS: 87811; C9803-CS; U0003; U0005

== ENCOUNTER 2023-04-08 16:21 | Inpatient (IN) | payer OTHER ==
[2023-04-08 17:01] VITALS: BMI 25.7
[2023-04-08] MEDS ORDERED: MAGNESIUM HYDROX 2400MG/30ML ORAL SUSPENSION 30 ML CUP PO PRN (18:25)
[2023-04-08] MEDS ORDERED: ONDANSETRON *ODT* 4 MG TABLET SL PRN (18:25)
[2023-04-08] MEDS ORDERED: DICYCLOMINE HCL 10 MG CAPSULE PO PRN (18:25)
[2023-04-08] MEDS ORDERED: IBUPROFEN 400 MG TABLET (FP) PO PRN (18:25)
[2023-04-08] MEDS ORDERED: guaiFENesin 600 MG TABLET.ER (FP) PO PRN (18:25)
[2023-04-08] MEDS ORDERED: NALOXONE HCL (KLOXXADO) 8 MG SPRAY NS PRN (18:25)
[2023-04-08] MEDS ORDERED: MAG HYDROX/AL HYDROX/SIMETH 30 ML UNIT-DOSE CUP PO PRN (18:25)
[2023-04-08] MEDS ORDERED: LOPERAMIDE HCL 2 MG CAPSULE PO PRN (18:25)
[2023-04-08] MEDS ORDERED: BISMUTH SUBSALICYLATE 524 MG/30 ML PO PRN (18:25)
[2023-04-08] MEDS ORDERED: BENZOCAINE/MENTHOL (CHLORASEPTIC ) LOZENGE MM PRN (18:25)
[2023-04-08] MEDS ORDERED: BENZONATATE 200 MG CAPSULE PO PRN (18:25)
[2023-04-08] MEDS ORDERED: POLYETHYLENE GLYCOL (HEALTHYLAX) 3350 17 GM PACKET PO PRN (18:25)
[2023-04-08] MEDS ORDERED: NALOXONE HCL 0.4 MG/ML VIAL IM PRN (18:25)
[2023-04-08] MEDS ORDERED: methaDONE HCL 10 MG TABLET (FOR DETOX USE ONLY) PO ONE (19:15)
[2023-04-08] MEDS: diazePAM 5 MG TABLET PO PRN (19:31)
[2023-04-08] MEDS: IBUPROFEN 600 MG TABLET (FP) PO PRN (19:34)
[2023-04-08] MEDS: cloNIDine HCL 0.1 MG TABLET PO PRN (20:30)
[2023-04-08] MEDS: hydrOXYzine PAMOATE 25 MG CAPSULE (FP) PO PRN (22:11)
[2023-04-08] MEDS: diazePAM 5 MG TABLET PO SCH (22:11)
[2023-04-08] MEDS: METHOCARBAMOL 500 MG TABLET PO PRN (22:11)
[2023-04-08] MEDS: MELATONIN 5 MG TABLETS PO SCH (22:12)
[2023-04-08] MEDS: THIAMINE HCL 100 MG TABLET (FP) PO SCH (22:12)
[2023-04-09] MEDS: ACETAMINOPHEN 325 MG TABLET (FP) PO PRN (01:07)
[2023-04-09] MEDS: diazePAM 5 MG TABLET PO PRN ×3 (01:08→20:13)
[2023-04-09] MEDS: diazePAM 5 MG TABLET PO SCH ×4 (05:46→22:26)
[2023-04-09] MEDS: cloNIDine HCL 0.1 MG TABLET PO PRN ×3 (07:23→22:26)
[2023-04-09] MEDS: PRENATAL VITAMINS W/ FOLIC ACID TABLET (FP) PO SCH (10:02)
[2023-04-09 11:32] LABS: HEMATOCRIT 35.2 % (35.4-49); MCH 24.1 pg (25.7-33.7); MCHC 31.4 g/dl (32.0-35.9); MEAN CELL VOLUME 76.9 fl (80-96); PLATELET COUNT 316 10^3/uL (134-434); RBC 4.58 M/mm3 (4.00-5.60); RDW 15.5 % (11.9-15.9); WHITE BLOOD COUNT 4.9 K/mm3 (4.0-10.0)
[2023-04-09] MEDS: IBUPROFEN 600 MG TABLET (FP) PO PRN ×2 (11:39→17:37)
[2023-04-09 11:46] LABS: CHLORIDE 107 mmol/L (98-107); POTASSIUM 4.1 mmol/L (3.5-5.1); SODIUM 140 mmol/L (136-145)
[2023-04-09 11:49] LABS: CALCIUM 8.8 mg/dL (8.5-10.1)
[2023-04-09 11:50] LABS: ALBUMIN 2.8 g/dl (3.4-5.0); ANION GAP 8 mmol/L (4-13); BLOOD UREA NITROGEN 15.3 mg/dL (7-18); CO2 24 mmol/L (21-32); GLUCOSE,RANDOM 92 mg/dL (74-106)
[2023-04-09 11:53] LABS: CREATININE 0.7 mg/dL (0.55-1.3); SGOT/AST 34 U/L (15-37); SGPT/ALT 38 U/L (13-61)
[2023-04-09 11:54] LABS: BILIRUBIN,TOTAL 0.5 mg/dL (0.2-1); TOT PROT 6.9 g/dl (6.4-8.2)
[2023-04-09 11:56] LABS: ALK PHOS 70 U/L (45-117)
[2023-04-09] MEDS: CLINDAMYCIN HCL 150 MG CAPSULE (FP) PO SCH ×2 (14:55→22:26)
[2023-04-09] MEDS: METHOCARBAMOL 500 MG TABLET PO PRN (18:39)
[2023-04-09] MEDS: THIAMINE HCL 100 MG TABLET (FP) PO SCH (22:25)
[2023-04-09] MEDS: MELATONIN 5 MG TABLETS PO SCH (22:28)
[2023-04-10] MEDS: ACETAMINOPHEN 325 MG TABLET (FP) PO PRN (00:38)
[2023-04-10] MEDS: diazePAM 5 MG TABLET PO PRN ×2 (00:38→10:14)
[2023-04-10] MEDS: cloNIDine HCL 0.1 MG TABLET PO PRN (04:44)
[2023-04-10] MEDS: CLINDAMYCIN HCL 150 MG CAPSULE (FP) PO SCH ×2 (05:05→14:19)
[2023-04-10] MEDS: diazePAM 5 MG TABLET PO SCH ×2 (05:05→14:31)
[2023-04-10] MEDS: METHOCARBAMOL 500 MG TABLET PO PRN (07:50)
[2023-04-10] MEDS: hydrOXYzine PAMOATE 25 MG CAPSULE (FP) PO PRN (07:50)
[2023-04-10 09:20] VITALS: BP 114/72; PULSE 68; RESP 17; TEMP 98.1
[2023-04-10] MEDS ORDERED: methaDONE HCL 10 MG TABLET (FOR DETOX USE ONLY) PO ONE (10:00)
[2023-04-10] MEDS: PRENATAL VITAMINS W/ FOLIC ACID TABLET (FP) PO SCH (10:13)
[2023-04-10] MEDS: IBUPROFEN 600 MG TABLET (FP) PO PRN (11:44)
[2023-04-11] MEDS ORDERED: diazePAM 5 MG TABLET PO SCH (06:00)
[2023-04-12] MEDS ORDERED: diazePAM 5 MG TABLET PO ONE (06:00)
[2023-04-12] MEDS ORDERED: methaDONE HCL 10 MG TABLET (FOR DETOX USE ONLY) PO ONE (10:00)
== END 2023-04-10 02:25 | disposition left against medical advice (07) | DRG 770 ==
LOC: YASAS 16:21 → Y6N 18:27
PROVIDERS: ADMIT Allergy & Immunology; ATTEND Surgery
PROC: HZ2ZZZZ Detoxification Services for Substance Abuse Treatment (ICD-10-PCS; principal; 2023-04-08)
DX: F11.23 Opioid dependence with withdrawal (principal); F10.230 Alcohol dependence with withdrawal, uncomplicated; F13.230 Sedative, hypnotic or anxiolytic dependence with withdrawal, uncomplicated; F14.20 Cocaine dependence, uncomplicated; F12.20 Cannabis dependence, uncomplicated; F17.210 Nicotine dependence, cigarettes, uncomplicated; F43.10 Post-traumatic stress disorder, unspecified; I10 Essential (primary) hypertension; K21.9 Gastro-esophageal reflux disease without esophagitis
CPT/HCPCS: 36415; 80053; 80307; 85027; 86780; 87635; Q0162